=== PATIENT | male | born 1965 | race Hispanic/Latino ===

== ENCOUNTER 2022-11-04 09:10 | Emergency (ER) | payer OTHER, SELFPAY ==
--- NOTE | 2022-11-04 09:30 | ED.URI ---
HPI - URI/Sore Throat General Chief Complaint: Upper Respiratory Infection Stated Complaint: Cold Symptoms Time Seen by Provider: 11/04/22 09:50 Source: patient and RN notes reviewed Mode of arrival: ambulatory Limitations: no limitations History of Present Illness HPI Narrative: 57-year-old male with history of diabetes presents with concern for 4 day history of cough, runny nose, stuffy nose. Reports he thought he allergies. Reports his had similar symptoms started yesterday. He reports he has been around people at work with similar symptoms. He denies fever. Reports body aches. Denies taking any xroa-boa-dyjczmm medication for his symptoms. He denies shortness of breath. MD elicited complaint: cough Related Data Home Medications Medication Instructions Recorded Confirmed dulaglutide 3 mg/0.5 mL 3 mg subcut WEEKLY 11/04/22 11/04/22 subcutaneous pen injector (Trulicity) insulin glargine 100 unit/mL 30 unit subcut HS 11/04/22 11/04/22 subcutaneous solution (Lantus U-100 Insulin) lisinopril 30 mg tablet 30 mg PO DAILY 11/04/22 11/04/22 metformin 1,000 mg tablet 1,000 mg PO BID 11/04/22 11/04/22 Allergies Allergy/AdvReac Type Severity Reaction Status Date / Time No Known Allergies Allergy Unverified 11/04/22 09:40 Review of Systems Review of Systems: CONSTITUTIONAL: Reports malaise. Denies chills, sweats, or fever. EYES: Denies visual changes, redness, or discharge. ENT: Reports rhinorrhea, congestion. Denies sinus pain, otalgia and sore throat. CARDIOVASCULAR: Denies chest pain, palpitations, or edema. RESPIRATORY: Reports cough. Denies dyspnea. GASTROINTESTINAL: Denies abdominal pain, nausea, vomiting, diarrhea SKIN: Denies rash or itching. MUSCULOSKELETAL: Reports myalgia. NEUROLOGIC: Denies headache. All systems reviewed & are unremarkable except as noted in HPI and below PMFSH Comments At time of signature, agree with nursing past medical, surgical, social and family history. There is no relevant family history pertinent to the presenting complaint Exam Narrative: GENERAL: Well-appearing, well-nourished, and in no acute distress. HEAD: Normocephalic EYES: PERRLA, conjunctivae clear ENT: Nares clear, turbinates edematous and erythematous, clear discharge. Mucous membranes moist. TM pearly sheehan with dull light reflex bilaterally; no tragal tenderness. Oropharynx not erythematous without lesions. Tonsils not enlarged and without exudate, no drooling, no hoarseness, no trismus, uvula midline. NECK: Supple. No lymphadenopathy CHEST: Clear to auscultation, breath sounds equal. No wheezing, rhonchi, rales, or stridor. No respiratory distress, speaks in full sentences. HEART: Regular rate and rhythm. No murmur heard. SKIN: Warm, dry, no rash. NEURO: Alert and oriented x3. PSYCH: Normal mood and affect Course Course Emergency Course: Patient is aware of diagnosis, understands and agrees to treatment plan. Anticipatory guidance given. Patient agrees to follow-up as directed and is aware of reasons to seek care at the emergency department. Portions of this record may have been created with voice recognition software Level of Care: Express Care Visit Vital Signs Vital signs: Reviewed. MDM - URI/Sore Throat MDM Narrative Medical decision making narrative: Differential diagnosis considered: Wagner virus, strep pharyngitis, allergic rhinitis, upper respiratory tract infection, sinusitis, rhinosinusitis, nasopharyngitis. viral pharyngitis, otitis media, otitis externa, pneumonia, bronchitis, viral cough syndrome, viral syndrome, and influenza. Exam findings show no acute concerns or changes; patient is non-toxic appearing and is in no distress. Patient is appropriate for outpatient treatment and follow-up. Lab Data Attestation: I reviewed the patient's lab results. Critical Care Time Critical Care Time Critical Care Time: No Discharge Plan Discharge Clinical Impression: FELY Marrero
[2022-11-04 09:35] VITALS: BP 151/89; PULSE 95; RESP 16; TEMP 37.3; O2SAT 100
== END 2022-11-04 10:06 | disposition home or self-care (01) ==
PROVIDERS: Emergency Provider Nurse Practitioner; PCP Internal Medicine
DX: U07.1 COVID-19 (principal); I10 Essential (primary) hypertension; E11.9 Type 2 diabetes mellitus without complications
CPT/HCPCS: 87081; 87426; 87880; 99203; C9803; G0463

== ENCOUNTER 2023-10-22 16:29 | Emergency (ER) | payer OTHER, SELFPAY ==
--- NOTE | ~2023-10-22 | XR_ITS ---
EXAMINATION: XR chest 2V Exam Date/Time: 10/22/2023 17:15 LABORATORY EQUIPMENT CLEANER HISTORY: SOB/CHEST PAIN X 2 DAYS. Comparison: None. RESULT: Lines, tubes, and devices: None. Lungs and pleura: Clear. Cardiomediastinal silhouette: Normal. Other: No acute osseous or upper abdominal finding. IMPRESSION: No acute cardiopulmonary process. Reviewed, dictated and finalized at location K. RATORY EQUIPMENT CLEANER
[2023-10-22 16:34] VITALS: BP 100/70; PULSE 97; RESP 20; TEMP 37; O2SAT 100
--- NOTE | 2023-10-22 16:47 | ED.URI ---
HPI - URI/Sore Throat General Chief Complaint: Upper Respiratory Infection Stated Complaint: chest congestion/cough/abdo upset Time Seen by Provider: 10/22/23 16:47 Source: patient, RN notes reviewed and old records reviewed Mode of arrival: ambulatory Limitations: no limitations History of Present Illness HPI Narrative: 58 year old male presents to [facility] care accompanied with spouse with complaints of cough, upper epigastric discomfort radiating to his back,GI upset some dyspnea and fatigue for the past 2 days. Patient reports that his appetite has been decreased is diabetic and has continuous glucose monitor reports sugars ranging 160-180,is on daily insulin and oral medications.s along with weekly Trulicity. Patient reports no known fevers chills or sweats reports previous DE years ago and family history of cardiac disease. 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 MD elicited complaint: cough and other (epigastric discomfort radiating to back,GI upset, dyspnea) Pertinent past history: other (diabetes, hypertension, previous DE) Onset (ago): day(s) (2) Consistency: intermittent Pain scale (0-10): 2 Able to tolerate fluids by mouth: Yes Treatments prior to arrival: other (aleve) Related Data Home Medications Medication Instructions Recorded Confirmed dulaglutide 3 mg/0.5 mL 3 mg subcut WEEKLY 11/04/22 10/22/23 subcutaneous pen injector (Trulicity) insulin glargine 100 unit/mL 40 unit subcut HS 11/04/22 10/22/23 subcutaneous solution (Lantus U-100 Insulin) lisinopril 30 mg tablet 30 mg PO DAILY 11/04/22 10/22/23 metformin 1,000 mg tablet 1,000 mg PO BID 11/04/22 10/22/23 Tradjenta See Rx Instructions .Route .COMPLEX 10/22/23 10/22/23 aspirin 81 mg chewable tablet 81 mg PO DAILY 10/22/23 10/22/23 latanoprost 0.005 % eye drops 1 drp EACH EYE HS 10/22/23 10/22/23 Allergies Allergy/AdvReac Type Severity Reaction Status Date / Time No Known Allergies Allergy Unverified 10/22/23 17:11 Review of Systems Review of Systems: CONSTITUTIONAL: Denies malaise, chills, sweats, or fever. EYES: Denies visual changes, redness, or discharge. ENT: Reports no rhinorrhea, congestion, sinus pain, otalgia and sore throat. CARDIOVASCULAR: Denies chest pain, palpitations, or edema. RESPIRATORY: Reports cough.? Denies acute dyspnea.reports a little shortness of breath GASTROINTESTINAL: Reports upper epigastric pain radiating to back, states upset stomach, no vomiting,no diarrhea SKIN: Denies rash or itching. MUSCULOSKELETAL: Denies myalgia. NEUROLOGIC: Denies headache. All systems reviewed & are unremarkable except as noted in HPI and below PMFSH Past Medical History Medical History (Updated 10/24/23 @ 11:07 by Mini Gonzalez NP) Diabetes Hyperlipidemia Hypertension Past history of myocardial infarction many years ago when lived in [place] Surgical History Surgical History (Updated 10/24/23 @ 11:04 by Mini Gonzalez NP) S/P foot surgery, left for infection Family History Family History (Updated 10/24/23 @ 11:04 by Mini Gonzalez NP) Other Heart disease Social History Social History (Updated 10/24/23 @ 11:06 by Mini Gonzalez NP) Smoking status: Never smoker Alcohol intake: current Alcohol use details: rare Substance use type: does not use Living arrangements: with family Gender identity (if verbalized by the patient): Male Comments At time of signature, agree with nursing past medical, surgical, social and family history. There is no relevant family history pertinent to the presenting complaint Exam Narrative: GENERAL: Well-appearing, well-nourished, and in no acute distress. HEAD: Normocephalic EYES: PERRLA, conjunctivae clear ENT: Nares clear, turbinates edematous and erythematous, clear discharge. Mucous membranes moist. TM pearly sheehan with dull light reflex bilaterally; no tragal tenderness. Oroph
[2023-10-22 17:07] LABS: Glucose Point of Care 161 mg/dl (65-105)
--- NOTE | 2023-10-22 17:15 | ECG_ITS ---
Measurements Intervals [place] Rate: 84 P: 43 IN: 217 QRS: -42 QRSD: 87 T: 28 QT: 341 QTc: 404 Interpretive Statements SINUS RHYTHM WITH PROLONGED IN INTERVAL BASELINE ARTIFACT PATTERN CONSISTENT WITH PULMONARY DISEASE CANNOT RULE OUT iNFERIOR MYOCARDIAL INFARCTION, PROBABLY OLD BORDERLINE ECG NO PREVIOUS ECG AVAILABLE FOR COMPARISON Electronically Signed On 10-23-2023 18:09:04 LABORER DEMOLITION by Swapnil Beckford M.D.
== END 2023-10-22 18:25 | disposition home or self-care (01) ==
PROVIDERS: Emergency Provider Registered Nurse; PCP Internal Medicine
DX: K21.9 Gastro-esophageal reflux disease without esophagitis (principal); Z20.822 Contact with and (suspected) exposure to COVID-19; E11.9 Type 2 diabetes mellitus without complications; Z79.4 Long term (current) use of insulin; Z79.84 Long term (current) use of oral hypoglycemic drugs; E78.5 Hyperlipidemia, unspecified; I10 Essential (primary) hypertension; I25.2 Old myocardial infarction
CPT/HCPCS: 71046; 82948; 87426; 87804; 93005; 99213; G0463

== ENCOUNTER 2025-03-20 14:21 | Emergency (ER) | payer OTHER, SELFPAY ==
[2025-03-20 14:28] VITALS: BP 119/79; PULSE 80; RESP 18; TEMP 36.6; O2SAT 100
--- NOTE | 2025-03-20 14:31 | ED_ITS ---
HPI - Nausea/Vomiting/Diarrhea General Chief complaint: Nausea/Vomiting/Diarrhea Stated complaint: Dizziness/Vomiting/Body Aches/Diarrhea Time Seen by Provider: 03/20/25 14:32 Source: patient and RN notes reviewed Mode of arrival: ambulatory Limitations: no limitations History of Present Illness HPI Narrative: 60 y/o male with hx DM and HTN presented for c/o n/v/d, chills. Onset 3 days with diarrhea which has since resolved. Yesterday had vomiting and chills. Today had vomiting and felt dizzy during the episode. Also endorses decreased appetite x4 days, frequent hiccups, and nausea when he tries to eat. States his Dexcom is not working, pt takes Lantus and insulin. Took a Tums yesterday. Endorses history of acid reflux, not on medication. BS on arrival 326. Related Data Home Medications ?Medication ?Instructions ?Recorded ?Confirmed ?Last Taken ?Type insulin glargine 100 unit/mL 40 unit subcut HS 11/04/22 10/22/23 Unknown History subcutaneous solution (Lantus U-100 Insulin) lisinopril 30 mg tablet 30 mg PO DAILY 11/04/22 10/22/23 Unknown History aspirin 81 mg chewable tablet 81 mg PO DAILY 10/22/23 10/22/23 Unknown History alcohol swabs pad topical 03/20/25 Unknown History atorvastatin 20 mg tablet mg 03/20/25 Unknown History blood-glucose sensor (Dexcom G7 03/20/25 03/20/25 Unknown History Sensor device) empagliflozin 25 mg tablet mg 03/20/25 Unknown History (Jardiance) insulin lispro 100 unit/mL subcut 03/20/25 Unknown History subcutaneous pen Allergies Allergy/AdvReac Type Severity Reaction Status Date / Time No Known Allergies Allergy Verified 03/20/25 14:43 Review of Systems Review of Systems: CONSTITUTIONAL: Denies body aches, fever, Reports chills ENT: Denies rhinorrhea, congestion CARDIOVASCULAR: Denies chest pain, palpitations, or edema. RESPIRATORY: Denies cough or dyspnea. GASTROINTESTINAL: Endorses abdominal pain, nausea, vomiting, diarrhea. Denies hematochezia, melena, hematemesis GENITOURINARY: Denies dysuria, hematuria, or CVA tenderness. SKIN: Denies rash MUSCULOSKELETAL: Denies back pain, joint pain, or myalgia. NEUROLOGIC: Denies headache, numbness, tingling, or weakness. All systems reviewed & are unremarkable except as noted in HPI and below PMFSH Past Medical History Medical History Hyperlipidemia Past history of myocardial infarction many years ago when lived in [place] Hypertension Diabetes Surgical History Surgical History S/P foot surgery, left for infection Family History Family History Other Heart disease Social History Social History Smoking status: Never smoker Alcohol intake: current Alcohol use details: rare Substance use type: does not use Living arrangements: with family Gender identity (if verbalized by the patient): Male Comments At time of signature, I have reviewed and agree with nursing past medical, surgical, social and family history unless otherwise noted. Please see nursing chart for further information. There is no relevant family history pertinent to the presenting complaint Exam Narrative: GENERAL: Well-appearing, and in no acute distress. EYES: EOMI. Conjunctivae normal. ENT: Mucous membranes pink and moist. CHEST: No respiratory distress. Clear to auscultation. HEART: Regular rate and rhythm. No murmur appreciated. Normal peripheral pulses. ABDOMEN: abd soft, normal active bowel sounds. Tender abdomen to RLQ, RUQ, periumbilical and epigastric areas, distended, guarding, no rebound tenderness, asymmetry EXTREMITIES: Normal range of motion. No edema. SKIN: Warm, dry, no rash. Capillary refill normal. Normal skin turgor. NEURO: No focal deficits. Alert and oriented x3. PSYCH: Normal affect. Course Course Emergency Course: Patient is aware of diagnosis, understands and agrees to treatment plan. Anticipatory guidance given. Patient agrees to follow-up as directed and is aware of reasons to seek care at the emergency department. Portions of this record may have been created with voice recognition software Level of Care: Express Care Visit Vital Signs Vital signs: Vital Signs Temperature 98 F 03/20/25 14:28 Pulse Rate 80 03/20/25 14:28 Respiratory Rate 18 03/20/25 14:28 Blood Pressure 119/79 03/20/25 14:28 Pulse Oximetry 100 03/20/25 14:28 Oxygen Delivery Room Air 03/20/25 14:28 Temperature 98 F 03/20/25 14:28 Pulse Rate 80 03/20/25 14:28 Respiratory Rate 18 03/20/25 14:28 Blood Pressure 119/79 03/20/25 14:28 Pulse Oximetry 100 03/20/25 14:28 Oxygen Delivery Room Air 03/20/25 14:28 Transfer Transfered to: [facility] Transportation: Other ( private vehicle) Transfer rationale: Pt is agreeable to transfer. Requests transfer to [facility] via private vehicle. Risks of transportation reviewed with pt including injury, worsening of condition and . v/u. Report called to hospital, spoke with Shirlene MIKE, [place] CALVERT, accepting physician. Pt is in stable condition at time of transfer. Advised to remain NPO and go directly to the hospital. MDM - Nausea/Vomiting/Diarrhea MDM Narrative Medical decision making narrative: Discussed physical exam findings, negative flu and COVID BS 326, VSS. Advised ER transfer for further evaluation n/v/d, hyperglycemia. Pt requests [facility]. Differential Diagnosis Differential diagnosis: Likely traveler's diarrhea, food poisoning, gastroenteritis, drug-induced nausea and vomiting, dehydration and other Lab Data Labs: Lab Results 03/20/25 03/20/25 Range/Units 14:39 14:56 POC Capillary Glucose 329 H (65-105) mg/dl POC Influenza A Ag Negative (Negative) POC Influenza B Ag Negative (Negative) POC SARS CoV-2 Ag Negative (Negative) Discharge Plan Discharge Clinical Impression: Vomiting, Hyperglycemia Patient Disposition: Acute Care Hospital Condition: Stable Patient Language: Indonesian Prescriptions: No Action lisinopril 30 mg tablet 30 mg PO DAILY insulin glargine [Lantus U-100 Insulin] 100 unit/mL solution 40 unit SUBCUT HS atorvastatin 20 mg tablet alcohol swabs Pads, Medicated TOPICAL insulin lispro 100 unit/mL insulin pen SUBCUT (DME) Dexcom G7 Sensor Device MISCELLANEOUS Jardiance 25 mg tablet aspirin 81 mg tablet,chewable 81 mg PO DAILY famotidine [Pepcid] 40 mg tablet 40 mg PO DAILY Qty: 30 0RF Follow-up/Referrals: Avril Mckay RN [Primary Care Provider] - Time of Disposition: 15:12
--- OUTSIDE RECORDS SUMMARY | 2025-03-20 14:31 | XMS_ITS | Clinical Summary ---
Author Organization [facility] Address [address] [place] [address] Phone Care Team Providers Care Plastic Process Technician Name Role Phone Corinne Bajwa Primary Care Provider [phone] Allergies No known active allergies Medications lisinopril (PRINIVIL, ZESTRIL) 20 MG Tablet Take 20 mg by mouth daily. Active linagliptin (TRADJENTA) 5 MG Tablet Take 5 mg by mouth nightly. Active metFORMIN (GLUCOPHAGE) 1000 MG Tablet Take 1,000 mg by mouth 2 times daily (with meals). Active glipiZIDE (GLUCOTROL XL) 5 MG TABLET SR 24 HR Take 5 mg by mouth nightly. Active atorvastatin (LIPITOR) 20 MG Tablet Take 20 mg by mouth nightly. Active aspirin EC 81 MG Tablet Delayed Response Take 81 mg by mouth daily. Active fluticasone (FLONASE) 50 MCG/ACT Suspension 1-2 Sprays by Nasal route daily. Use in each nostril as directed. 1 Bottle 11/27/2018 Active Active Problems Problem Noted Date Diagnosed Date Chest pain 09/05/2017 Hypomagnesemia 09/05/2017 Type 2 diabetes mellitus wit hout complication, without long-term current use of insulin 09/05/2017 Hypertension 09/05/2017 Family History Medical History Relation Name Comments Stroke Brother Stroke Father Stroke Mother Stroke Sister Relation Name Status Comments Brother (Age 46) Father (Age 88) Mother (Age 76) Sister (Age 14) Social History Tobacco Use Types Packs/Day Years Used Date Smoking Tobacco: Never Smokeless Tobacco: Never Alcohol Use Standard Drinks/Week Comments No 0 (1 standard drink = 0.6 oz pur e alcohol) Sex and Gender Information Value Date Recorded Sex Assigned at Not on file Legal Sex Male 11:35 PM CDT Gender Identity Not on file Sexual Orientation Not on file Last Filed Vital Signs Vital Sign Reading Time Taken Comments Blood Pressure 148/73 11/27/2018 11:30 AM CDT Pulse 71 11/27/2018 11:30 AM CDT Temperature 36.2 C (97.2 F) 11/27/2018 8:27 AM CDT Respiratory Rate 12 11/27/2018 9:45 AM CDT Oxygen Saturation 100% 11/27/2018 11:30 AM CDT Inhaled Oxygen Concentration - - Weight 87.5 kg (193 lb) 11/27/2018 8:22 AM CDT Height 167.6 cm (5' 6) 11/27/2018 8:22 AM CDT Body Mass Index 31.15 11/27/2018 8:22 AM CDT Plan of Treatment Health Maintenance Due Date Last Done Comments Diabetes: Foot Exam 1965 Hepatitis C Virus (HCV) Screening 1965 Cologuard 2008 Colonoscopy 2008 Colorectal Cancer Screening 2008 Immunochemical Fecal Occult Blood 2008 Zoster Immunization (1 of 2) 2013 Pneumococcal Immunization (50+ years) (2 of 2 - PCV) 08/05/2017 08/05/2016, 06/13/2006 Diabetes: Hemoglobin A1c 03/05/2018 09/05/2017 Diabetes: Nephropathy Screening 11/28/2019 11/27/2018, 09/06/2017, 09/05/2017 Respiratory Syncytial Virus (RSV) Immunization (Adult) (1 - Risk 60-74 years 1-dose series) 2023 Diabetes: Eye Exam 12/04/2023 12/03/2022 SARS-COV-2 Immunization ( - season) 2024 12/19/2020, 11/21/2020 Influenza Immunization (#1) 2025 1008/2017, 05/28/2018, 05/05/2017, Additional history exists DTaP/Tdap/Td Immunization Discontinued 07/27/2010, 12/2008 TdaP Immunization Completed 07/27/2010, 09/02/2008 Pneumococcal Immunization Combined Discontinued 08/05/2016, 06/13/2006 Hepatitis B Immunization Aged Out No longer eligible based on patient's age to complete this topic Human Papillomavirus (HPV) Immunization Aged Out No longer eligible based on patient's age to complete this topic Meningococcal Immunization (ACWY) Aged Out No longer eligible based on patient's age to complete this topic Rotavirus Immunization Aged Out No lo nger eligible based on patient's age to complete this topic Procedures Procedure Name Priority Date/Time Associated Diagnosis Comments DILATED EYE EXAM 12/03/2022 1 2:00 AM CDT CMP (COMPREHENSIVE METABOLIC PANEL) STAT 11/27/2018 8:40 AM CDT HEMOGLOBIN A1C W/ ESTIMATED GLUCOSE Routine 09/05/2017 4:19 PM MANAGER ER from Last 3 Months or Most Recently Relevant to Health Maintenance Results * DILATED EYE EXAM (12/03/2022 12:00 AM CDT) 12/03/2022 us Provider Scan PROCEDURE/MINOR SURGICAL ORDERAB LES Final Result SCAN * (ABNORMAL) CMP (11/27/2018 8:40 AM CDT) SODIUM 138 136 - 144 mmol/L 11/27/2018 9:17 AM CDT [facility] POTASSIUM 3.6 3.5 - 5.1 mmol/L 11/27/2018 9:17 AM CDT [facility] CHLORIDE 103 100 - 110 mmol/L 11/27/2018 9:17 AM CDT [facility] CO2, VENOUS 23 22 - 32 mmol/L 11/27/2018 9:17 AM CDT [facility] ANION GAP 15.6 8.0 - 20.0 mmol/L 11/27/2018 9:17 AM CDT [facility] GLUCOSE 264(H) 70 - 99 mg/dL 11/27/2018 9:17 AM CDT [facility] BUN 13 6 - 20 mg/dL 11/27/2018 9:17 AM [facility] CREATININE, BLOOD 0.37(L) 0.80 - 1.30 mg/dL 11/27/2018 9:17 AM [facility] BUN/CREATININE RATIO 35(H) 12 - 20 ratio 11/27/2018 9:17 AM [facility] TOTAL PROTEIN 7.3 6.0 - 8.3 g/dL 11/27/2018 9:17 AM [facility] ALBUMIN 3.7 3.5 - 5.2 g/dL 11/27/2018 9:17 AM [facility] Comment: The colormetric methods used for the determination of Albumin may lead to falsely elevated test results in patients suffering from renal failure or insufficiency due to interference with other proteins. A/G RATIO 1.0 1.0 - 2.0 11/27/2018 9:17 AM [facility] CALCIUM 9.2 8.9 - 10.3 mg/dL 11/27/2018 9:17 AM [facility] T BILI 0.6 <=1.2 mg/dL 11/27/2018 9:17 AM [facility] SGOT (AST) 9 <=40 U/L 11/27/2018 9:17 AM [facility] SGPT (ALT) 15 <=41 U/L 11/27/2018 9:17 AM [facility] ALKALINE PHOSPHATASE 70 40 - 130 U/L 11/27/2018 9:17 AM [facility] GFR, EST. NONAFRICAN >60 >=60 11/27/2018 9:17 AM [facility] GFR, EST. >60 >=60 019 9:17 AM [facility] Comment: Creatinine Clearance is the preferred criteria for selecting drug dose adjustments in renally impaired patients. The GFR is provided as additional pertinent clinical information. GFR is reported in mL/min/1.73 sq m. Blood specimen (specimen) Venous Catheter (IV) / Unknown 11/27/2018 8:40 AM CDT 11/27/2018 8:50 AM CDT us Darnell Cespedes MD CHEMISTRY ORDERABLES Final Result Performing Organization Address City/[facility]/ZIP Co de Phone Number [facility] [address] [place] [address] * (ABNORMAL) Hemoglobin A1C (if indicated) (09/05/2017 4:19 PM MANAGER ER) HGB-A1C 8.3(H) 4.4 - 6.4 % 09/05/2017 4:38 PM MANAGER ER [facility] Est Average Glucose 191.5 mg/dL 09/05/2017 4:38 PM MANAGER ER [facility] Blood specimen (specimen) Butterfly Puncture / Unknown 09/05/2017 4:19 PM MANAGER ER 09/05/2017 4:24 PM MANAGER ER Narrative [facility] - 09/05/2017 4:38 PM MANAGER ER HEMOGLOBIN A1C: DIABETIC PATIENTS: WELL-CONTROLLED: 6.2 - 7.0 INTERMEDIATE WELL-CONTROLLED: 7.0 - 9.0 POORLY-CONTROLLED: >9.0 us Maryjane Mattson APRN, CNP CHEMISTRY ORDERABLE S Final Result Performing Organization Address [facility] Co de Phone Number [facility] [address] [place] [address] from Last 3 Months or Most Recently Relevant to Health Maintenance Insurance MEDICAID [employer] Advance Directives * Full Code (Latest Code Status on File) Date Activated Date Inactivated Comments 09/05/2017 1:09 PM 09/06/2017 3:41 PM CPR-Full Treat ment: FULL ARREST: Attempt Resuscitation/CPR wit intubation and mechanical ventilation. PRE-ARREST: Use entire range of life support measures to stabilize the patient. Care Teams Plastic Process Technician Relationship Specialty Start Date End Date Corinne Bajwa PA [address] [address] PCP - General Adult Medicine 09/05/17
--- OUTSIDE RECORDS SUMMARY | 2025-03-20 14:31 | XMS_ITS | Referral Summary ---
Author Organization [facility] Address [address] [place] [id number] Care Team Providers Care Glass Installer Technician Name Role Phone Ravi Rosas MD Primary Care Provider [phone] Encounters Date Type Department Care Team Description 03/05/2025 Telephone [facility] Diabetes Endocrine Care at [address] [id number] Daxa Zimmerman, [employer] 02/07/2025 Plan of Care Documentation [facility] - [place] Darrell Maza [id number] 02/07/2025 5:30 PM CDT Therapy [facility] - [place] Darrell Maza [facility] Maria C Hernandez, PT Dizziness and giddiness (Primary Dx); Vertigo 01/28/2025 Telephone [facility] Diabetes Endocrine Care at [address] [phone] Daxa Zimmerman, [employer] 01/09/2025 Results Follow-Up [facility] Diabetes Endocrine Care at [address] [phone] Daxa Zimmerman, [employer] Lipid panel, Albumin Creatinine Ratio, Urine, Comprehensive metabolic panel, eGFR 01/08/2025 3:30 PM CDT Lab [facility] Outpatient Lab - Outpatient Center at [address] [address] Type 2 diabetes mellitus with hyperglycemia, with long-term current use of insulin ([facility]) 01/08/2025 3:00 PM CDT Office Visit [facility] Diabetes Endocrine Care at [address] [place] [id number] Daxa Zimmerman, [employer] Type 2 diabetes mellitus with hyperglycemia, with long-term current use of insulin ([facility]) (Primary Dx); Mixed 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 (HCC); Primary hypertension; Dexcom 6 continuous glucose monitoring device from Last 3 Months Allergies No known active allergies Medications latanoprost (XALATAN) 0.005 % ophthalmic solution INSTILL 1 DROP IN BOTH EYES EVERY NIGHT AT BEDTIME 3 Active famotidine (PEPCID) 40 mg tablet Take 1 tablet (40 mg total) by mouth daily Active meclizine (ANTIVERT) 25 mg tablet Take 1 tablet (25 mg total) by mouth 3 (three) times a day as needed for dizziness 30 tablet 4 Active alcohol swabs pads, medicated USE TO CHECK BLOOD SUGAR THREE TIMES DAILY 4 Active empagliflozin (JARDIANCE) 25 mg tabletIndicati ons:type 2 diabetes mellitus Take 1 tablet (25 mg total) by mouth daily 90 tablet 4 4 Active lisinopriL (PRINIVIL,ZEST RIL) 30 mg tablet Take 1 tablet (30 mg total) by mouth daily I10 90 tablet 4 4 Active metFORMIN (GLUCOPHAGE) 1,000 mg tabletIndicati ons:Type 2 diabetes mellitus with hyperglycemia, with long-term current use of insulin ([facility]) Take 1 tablet (1,000 mg total) by mouth 2 (two) times a day with meals 180 tablet 4 4 Active atorvastatin (LIPITOR) 20 mg tablet Take 1 tablet (20 mg total) by mouth nightly 90 tablet 4 4 Active insulin glargine (LANTUS) 100 unit/mL vial for injectionIndic ations:Type 2 diabetes mellitus with hyperglycemia, with long-term current use of insulin ([facility]) Inject 48 Units under the skin nightly E11,65 45 mL 4 5 Active dulaglutide (Trulicity) 3 mg/0.5 mL pen injectorIndica tions:type 2 diabetes mellitus Inject 0.5 mL (3 mg total) under the skin every 7 days E11.65 6 mL 4 5 Active pen needle, diabetic 32 gauge x 5/32 needle Use to inject up to 4 times daily 100 each 11 5 Active insulin lispro (HumaLOG) 100 unit/mL pen for injectionIndic ations:type 2 diabetes mellitus Inject 14 Units under the skin 3 (three) times a day before meals e11.65 45 mL 4 5 Active blood-glucose sensor device Use to continuously monitor glucose, change every 10 days. 9 each 3 5 Active insulin syringe-needle U-100 1/2 mL 29 syringe USE DIRECTED WITH LANTUS 100 each 3 5 Active aspirin 81 mg chewable tablet Take 1 tablet (81 mg total) by mouth daily 100 tablet 3 5 Active aspirin 81 mg chewable tablet CHEW AND SWALLOW 1 TABLET BY MOUTH DAILY 0 025 Discontin ued(Reord er) TRUEplus Insulin 0.5 mL 29 gauge x 1/2 syringe USE DIRECTED WITH LANTUS 4 025 Discontin ued(Alter rosales therapy) Active Problems Problem Noted Date Diagnosed Date Cervical radiculopathy 02/18/2024 Transient ischemic attack (TIA) 02/17/2024 Dizziness 02/16/2024 Mixed diabetic hyperlipidemi a associated with type 2 diabetes mellitus 03/11/2023 Assessment & Plan (07/05/2024 3:45 PM QUALITY CONTROL ANALYST): This is a chronic condition which is at goal . Goal is LDL less than 70 Continue atorvastatin. Encouraged to eat healthy, include fresh fruits and vegetables daily and avoid eating fried foods more than once per week. Assessment & Plan (03/27/2024 4:52 PM CDT): This is a chronic condition which is at goal . Goal is LDL less than 70 Continue atorvastatin Encouraged to eat healthy, include fresh fruits and vegetables daily and avoid eating fried foods more than once per week. Encouraged to take medications as prescribed. Assessment & Plan (07/26/2023 3:18 PM QUALITY CONTROL ANALYST): This is a chronic condition which is at goal of LDL less than 70 Continue atorvastatin Encouraged to eat healthy, include fresh fruits and vegetables daily and avoid eating fried foods more than once per week. Encouraged to take medications as prescribed. Assessment & Plan (03/11/2023 10:51 AM CDT): This is a chronic condition which is at goal of LDL less than 70 Continue atorvastatin Encouraged to eat healthy, include fresh fruits and vegetables daily and avoid eating fried foods more than once per week. Encouraged to take medications as prescribed. DoseMe 6 continuous glucose monitoring device Assessment & Plan (01/08/2025 3:07 PM CDT): Continuous glucose monitor (cgm) applied from 12/26/2024 to 01/08/2025 This device was placed for monitor and treatment of blood sugar. Interpretation of data- average blood sugar 261. 18% time in range. 82% hyperglycemia. 1% hypoglycemia Assessment & Plan (10/11/2024 3:01 PM QUALITY CONTROL ANALYST): Continuous glucose monitor (cgm) applied from 09/28/2024 to 10/11/2024 This device was placed for monitor and treatment of blood sugar. Interpretation of data- average blood sugar to 75. 10% time in range. 90% hyperglycemia. 0 hypoglycemia Assessment & Plan (07/05/2024 3:25 PM QUALITY CONTROL ANALYST): Continuous glucose monitor (cgm) applied from 06/22 to 07/05/2024 This device was placed for monitor and treatment of blood sugar. Interpretation of data- average blood sugar 191. 50% time in range. 50% hyperglycemia. 0 hypoglycemia Assessment & Plan (03/11/2023 10:53 AM CDT): Continuous glucose monitor (cgm) applied from 02/21 to 03/06/2023 This device was placed for monitor and treatment of blood sugar. Interpretation of data- average blood sugar 223. 26% time in range. 74% hyperglycemia. Increase basal insulin. Type 2 diabetes mellitus with hyperglycemia 07/29 Assessment & Plan (07/05/2024 3:44 PM QUALITY CONTROL ANALYST): This is a chronic condition which is uncontrolled, improving but not at goal. No hypoglycemia . Goal is less than 7%. Personally reviewed most recent A1c - Lab Results Component Value Date HGBA1C 8.3 07/05/2024 Personally reviewed POC blood sugar- elevated, not at goal of 80-180 Lab Results Component Value Date POCGLU 218 07/05/2024 Medication- continue Lantus 44 units daily, continue Humalog 14 units prior to meals- 3 times/day, continue metformin 1000mg twice a day, continue Trulicity 1.5mg weekly. Add Jardiance 25 mg daily Monitor blood sugar continuously with cgm. Encouraged annual eye exam. Monofilament foot exam completed. Protective senses -not intact eGFR- >90 Kidney function-normal Urine microalbumin/creatinine ratio - elevated. Goal is <30. Continue lisinopril. Assessment & Plan (03/27/2024 4:51 PM CDT): This is a chronic condition which is worsening, elevated, not at goal . Goal is less than 7%. Since stopping Trulicity Personally reviewed most recent A1c - Lab Results Component Value Date HGBA1C 9.6 (H) 02/17/2024 Personally reviewed POC blood sugar- not at goal of 80-180 Lab Results Component Value Date POCGLU 228 03/27/2024 Medication- increase Lantus 44 units daily, continue Humalog 142 units prior to meals- 3 times/day, and metformin 1000mg twice a day, stopped trulicity 3mg weekly after being hospitalized. Restart Trulicity 0.75mg weekly. Monitor blood sugar continuously with cgm. Encouraged annual eye exam. Monofilament foot exam completed. Loss of protective senses Personally reviewed CMP eGFR- greater than 90 Kidney function-normal Urine microalbumin/creatinine ratio - not at goal. Goal is <30. Continue Lisinopril Assessment & Plan (07/26/2023 3:18 PM QUALITY CONTROL ANALYST): This is a chronic condition which is inadequately controlled improving not at goal of less than 7%. Personally reviewed most recent A1c - Lab Results Component Value Date HGBA1C 8.6 07/26/2023 Personally reviewed POC blood sugar- not at goal 80-180 Lab Results Component Value Date POCGLU 200 07/26/2023 Medication- increase Lantus 40 units daily, continue Humalog 12 units prior to meals- 3 times/day, and metformin 1000mg twice a day, Continue trulicity 3mg weekly Monitor blood sugar continuously with sensor. Encouraged annual eye exam. Monofilament foot exam completed. protective senses intact Personally reviewed CMP eGFR- 112 Kidney function- normal Urine microalbumin/creatinine ratio - not at goal <30 treated with lisinopril B/P today- at goal of <140/90. continue lisinopril Personally reviewed lipid panel. at Goal of less than 70. Continue atorvastatin Assessment & Plan (03/11/2023 10:50 AM CDT): This is a chronic condition which is worsening not at goal of less than 7%. Personally reviewed most recent A1c - Lab Results Component Value Date HGBA1C 9.4 03/11/2023 Personally reviewed POC blood sugar- not at goal 80-180 Lab Results Component Value Date POCGLU 233 03/11/2023 Medication- Continue increase Lantus 40 units daily, continue Humalog 12 units prior to meals- 3 times/day, and metformin 1000mg twice a day, Continue trulicity 3mg weekly Monitor blood sugar continuously with dexcom 6 sensor. Encouraged annual eye exam. Monofilament foot exam completed. loss of protective senses. Treated with Gabapentin/Lyrica Personally reviewed CMP eGFR- 112 Kidney function- normal Urine microalbumin/creatinine ratio - pending. goal <30 treated with lisinopril B/P today-at goal of <140/90. continue lisinopril Personally reviewed lipid panel. at Goal of less than 70. Continue atorvastatin Assessment & Plan (12/10/2022 4:06 PM CDT): This is a chronic condition which is improving but not at goal of less than 7%. Personally reviewed most recent A1c - Lab Results Component Value Date HGBA1C 8.7 12/10/2022 Personally reviewed POC blood sugar- not at goal 80-180 Lab Results Component Value Date POCGLU 214 12/10/2022 Medication- Continue Lantus 36 units daily, Humalog 12 units prior to meals- 3 times/day, and metformin 1000mg twice a day, Continue trulicity 3mg weekly Monitor blood sugar continuously with Dexcom 6 sensor. Encouraged annual eye exam. last dilated eye exam was [facility] Monofilament foot exam completed. Some protective senses intact loss of protective senses at some areas of. Urine microalbumin/creatinine ratio - not at goal <30 treated with lisinopril Personally reviewed CMP GFR- 103 Kidney function- normal B/P today- at goal of <140/90. continue lisinopril Personally reviewed lipid panel. Not at Goal of less than 70. Continue atorvastatin Assessment & Plan (08/16/2022 3:16 PM QUALITY CONTROL ANALYST): This is a chronic condition which is worsening, not at goal. Personally reviewed latest A1c-10.7 %, Not at goal less than 7% Personally reviewed blood sugar -288, not at goal 80-180 Medication- Continue Lantus 36 units daily, Humalog 12 units prior to meals- 3 times/day, and metformin 1000mg twice a day, continue trulicity 3 mg weekly - denies history of pancreatitis. Encouraged to monitor blood sugar 4x times a day. Encouraged annual eye exam. last dilated eye exam was [facility] Monofilament foot exam completed, some protective senses intact but absent in other areas, Urine microalbumin/creatinine ratio - 30-300mg/dl, abnormal. Continue lisinopril 20 mg daily, at goal <30 Personally reviewed labs: GFR- 103 Kidney function- normal B/P today- at goal of <140/90.. Continue Lisinopril. Personally reviewed LDL - 91 at Goal of less than 70, continue atorvastatin. No history of macrovascular disease - [place] Primary hypertension 09/05/2017 Assessment & Plan (07/05/2024 3:45 PM QUALITY CONTROL ANALYST): This is a chronic condition which is at goal. Goal is less than 140/90 Continue lisinopril Encouraged to monitor weight and B/P at home. Assessment & Plan (03/27/2024 4:51 PM CDT): This is a chronic condition which is at goal. Goal is less than 140/90 Personally reviewed labs. Continue lisinopril Encouraged to monitor weight and B/P at home. Encouraged to void caffeine and excessive alcohol consumption as this will elevate B/P Encouraged to take medications as prescribed. Assessment & Plan (07/26/2023 3:19 PM QUALITY CONTROL ANALYST): This is a chronic condition which is at goal of less than 140/90 Personally reviewed labs. Continue lisinopril Encouraged to monitor weight and B/P at home Encouraged to take medications as prescribed. Assessment & Plan (03/11/2023 10:50 AM CDT): This is a chronic condition which is at goal of less than 140/90 Personally reviewed labs. Continue lisinopril Encouraged to monitor weight and B/P at home Encouraged to take medications as prescribed. Assessment & Plan (12/10/2022 4:06 PM CDT): This is a chronic condition which is at goal Of <140/90 Personally reviewed labs. continue lisinopril Avoid caffeine, caffeine will raise blood pressure and excessive alcohol consumption. Monitor your weight and B/P. Encouraged to take medications as prescribed. Assessment & Plan (08/16/2022 3:18 PM QUALITY CONTROL ANALYST): This is a chronic condition which is at goal Of <140/90 Personally reviewed labs. continue lisinopril Avoid caffeine, caffeine will raise blood pressure and excessive alcohol consumption. Monitor your weight and B/P. Encouraged to take medications as prescribed. Assessment & Plan (05/13/2022 4:52 PM CDT): This is a chronic condition which is at goal Goal is <140/90 Personally reviewed labs. B/P today- at goal continue lisinopril 20 mg daily. Avoid caffeine, caffeine will raise blood pressure and excessive alcohol consumption. Monitor your weight and B/P. Encouraged to take medications as prescribed. Assessment & Plan (01/15/2022 11:00 AM CDT): This is a chronic condition which is at goal Goal is <140/90 Personally reviewed labs. B/P today- 118/66, currently on lisinopril 20 mg daily. Avoid caffeine, caffeine will raise blood pressure and excessive alcohol consumption. Monitor your weight and B/P. Encouraged to take medications as prescribed. Assessment & Plan (12/02/2021 11:30 AM CDT): This is a chronic condition which is at goal Goal is <140/90 Personally reviewed labs. B/P today- 130/72, currently on lisinopril 20 mg daily. Avoid caffeine, caffeine will raise blood pressure and excessive alcohol consumption. Monitor your weight and B/P. Encouraged to take medications as prescribed. Assessment & Plan (10/20/2021 4:09 PM QUALITY CONTROL ANALYST): This is a chronic condition which is at goal Goal is <140/90 Personally reviewed labs. B/P today- 138/72, currently on lisinopril 20 mg daily. Avoid caffeine, caffeine will raise blood pressure and excessive alcohol consumption. Monitor your weight and B/P. Encouraged to take medications as prescribed. Assessment & Plan (07/20/2021 6:05 PM QUALITY CONTROL ANALYST): This is a chronic condition which is at goal Goal is <140/90 Personally reviewed labs. B/P today- 128/70, currently on lisinopril 20 mg daily. Avoid caffeine, caffeine will raise blood pressure and excessive alcohol consumption. Monitor your weight and B/P. Encouraged to take medications as prescribed. Assessment & Plan (05/27/2021 4:37 PM CDT): This is a chronic condition which is at goal Goal is <140/90 Personally reviewed labs. B/P today- 120/68, currently on lisinopril 20 mg daily. Avoid caffeine, caffeine will raise blood pressure and excessive alcohol consumption. Monitor your weight and B/P. Encouraged to take medications as prescribed. Assessment & Plan (02/27/2021 4:47 PM CDT): This is a chronic condition which is at goal Goal is <140/90 Personally reviewed labs. B/P today- 112/68, currently on lisinopril 20 mg daily. Avoid caffeine, caffeine will raise blood pressure and excessive alcohol consumption. Monitor your weight and B/P. Encouraged to take medications as prescribed. Assessment & Plan (11/19/2020 5:17 PM CDT): This is a chronic condition and is stable, controlled, at goal. Goal is <140/90 on current therapy. Personally reviewed labs. Avoid caffeine, caffeine will raise blood pressure and excessive alcohol consumption. Monitor your weight and B/P. Please take medications as prescribed. B/P today- 116/62, currently on lisinopril 20 mg daily. Assessment & Plan (09/12/2020 5:20 PM QUALITY CONTROL ANALYST): This is a chronic condition and is stable, controlled, at goal. Goal is <140/90 on current therapy. Personally reviewed labs. Avoid caffeine, caffeine will raise blood pressure and excessive alcohol consumption. Monitor your weight and B/P. Please take medications as prescribed. B/P today- 112/70, currently on lisinopril 20 mg daily. Resolved Problems Problem Noted Date Diagnosed Date Resolved Date Type 2 diabetes mellitus wit h chronic kidney disease 08/16/2022 08/16/2022 Type II or unspecified type diabetes mellitus with renal manifestations, uncontrolled(250.42) 05/27/2021 05/27/2021 Type 2 diabetes mellitus wit hout complication, with long-term current use of insulin ([facility]) 09/05/2017 08/16/2022 Assessment & Plan (05/13/2022 4:52 PM CDT): This is a chronic condition which is worsening, not at goal. Personally reviewed latest A1c- 8.6 % Not at goal less than 7% Personally reviewed blood sugar -318, not at goal 80-180 Medication- Continue Lantus 36 units daily, Humalog 12 units prior to meals- 3 times/day, and metformin 1000mg twice a day, increase trulicity 3 mg weekly - denies history of pancreatitis. TSH -1.22, normal thyroid function, cpeptide-3.4- Type 2 Diabetes. Encouraged to monitor blood sugar 4x times a day. Encouraged annual eye exam. last dilated eye exam was [facility] in [place] Monofilament foot exam completed, protective senses intact, Labs scanned into media Urine microalbumin/creatinine ratio - 30-300mg/dl, abnormal. Continue lisinopril 20 mg daily, at goal <30 Personally reviewed labs: GFR- 103 Kidney function- normal B/P today- at goal. Continue lisinopril 20 mg daily. Goal blood pressure is <140/90. Personally reviewed LDL - 91, continue atorvastatin 20 mg daily. At Goal of less than 70 No history of macrovascular disease - [place]. Assessment & Plan (01/15/2022 11:00 AM CDT): This is a chronic condition which is improving but not at goal. Personally reviewed latest A1c- 8% Not at goal less than 7% Personally reviewed blood sugar -126 at goal 80-180 Medication- Continue Lantus 36 units daily, Humalog 12 units prior to meals- 3 times/day, and metformin 1000mg twice a day, trulicity 1.5mg weekly - denies history of pancreatitis. TSH -1.22, normal thyroid function, cpeptide-3.4- Type 2 Diabetes. Encouraged to monitor blood sugar 4x times a day. Encouraged annual eye exam. last dilated eye exam was [facility] in [place] Monofilament foot exam completed, protective senses intact, Labs scanned into media Urine microalbumin/creatinine ratio - 30-300mg/dl, abnormal. Currently on lisinopril 20 mg daily, at goal <30 Personally reviewed labs: BUN-14 creatinine- 0.54 GFR- 117 Kidney function- normal B/P today- 118/66, currently on lisinopril 20 mg daily. At Goal blood pressure is <140/90 and as close to 120/80 as possible. Personally reviewed LDL - 66, currently on atorvastatin 20 mg daily. At Goal of less than 70 No history of macrovascular disease - [place] Assessment & Plan (12/02/2021 11:29 AM CDT): This is a chronic condition which is not at goal. Personally reviewed latest A1c- 10.9% Not at goal less than 7% Personally reviewed blood sugar -91 at goal 80-180 Medication- Continue Lantus 36 units daily, Humalog 12 units prior to meals- 3 times/day, and metformin 1000mg twice a day, increase trulicity 1.5mg weekly - denies history of pancreatitis. TSH -1.22, normal thyroid function, cpeptide-3.4- Type 2 Diabetes. Encouraged to monitor blood sugar 4x times a day. Encouraged annual eye exam. last dilated eye exam was [facility] in [place] Monofilament foot exam completed, protective senses intact, Labs scanned into media Urine microalbumin/creatinine ratio - 30-300mg/dl, abnormal. Currently on lisinopril 20 mg daily, at goal <30 Personally reviewed labs: BUN-14 creatinine- 0.54 GFR- 117 Kidney function- normal B/P today- 130/72, currently on lisinopril 20 mg daily. At Goal blood pressure is <140/90 and as close to 120/80 as possible. Personally reviewed LDL - 66, currently on atorvastatin 20 mg daily. At Goal of less than 70 No history of macrovascular disease - [place] Assessment & Plan (10/20/2021 5:00 PM QUALITY CONTROL ANALYST): This is a chronic condition which is not at goal. Personally reviewed A1c today- 10.9% Not at goal less than 7% Personally reviewed blood sugar -276 Not at goal 80-180 Medication- Continue Metformin 1000mg twice daily, stop Tradjenta increase Lantus 36units daily, increase Humalog 12units - 3 times/day- 15 minutes prior to meals. Start Trulicity 0.75mg weekly. - denies history of pancreatitis. Return demonstated the correct use of an insulin pen and Trulicity pen Most likely medication non compliance. TSH -1.22, normal thyroid function, cpeptide-3.4- Type 2 Diabetes. Encouraged to monitor blood sugar 4x times a day. Encouraged annual eye exam. last dilated eye exam was [facility] in [place] Monofilament foot exam completed, protective senses intact, Labs scanned into media Urine microalbumin/creatinine ratio - 30-300mg/dl, abnormal. Currently on lisinopril 20 mg daily, at goal <30 Personally reviewed labs: BUN-14 creatinine- 0.54 GFR- 117 Kidney function- normal B/P today- 138/72, currently on lisinopril 20 mg daily. At Goal blood pressure is <140/90 and as close to 120/80 as possible. Personally reviewed LDL - 66, currently on atorvastatin 20 mg daily. At Goal of less than 70 No history of macrovascular disease - [place] Assessment & Plan (07/20/2021 6:03 PM QUALITY CONTROL ANALYST): This is a chronic condition which is not at goal. Personally reviewed A1c today- increased to 11% Not at goal less than 7% Personally reviewed blood sugar 420 Not at goal 80-180 Medication- Continue Metformin 1000mg daily, Tradjenta 5mg daily, increase Lantus 30units daily, increase Humalog 10units - 3 times/day- 15 minutes prior to meals. Return demonstated the correct use of an insulin pen. Most likely medication non compliance. TSH -1.22, normal thyroid function, cpeptide-3.4- Type 2 Diabetes. Encouraged to monitor blood sugar 4x times a day. Encouraged annual eye exam. last dilated eye exam was [facility] in [place] Monofilament foot exam completed, protective senses intact, Urine microalbumin/creatinine ratio - <30, normal. Currently on lisinopril 20 mg daily, at goal <30 Personally reviewed labs: BUN-14 creatinine- 0.54 GFR- 117 Kidney function- normal B/P today- 128/70, currently on lisinopril 20 mg daily. At Goal blood pressure is <140/90 and as close to 120/80 as possible. Personally reviewed LDL - 66, currently on atorvastatin 20 mg daily. At Goal of less than 70 See labs in Media. No history of macrovascular disease - [place] Assessment & Plan (05/27/2021 4:38 PM CDT): This is a chronic condition which is worsening and not at goal. Personally reviewed A1c today- increased to 11% Not at goal less than 7% Personally reviewed blood sugar 307 Not at goal 80-180 Medication- Continue Metformin 1000mg daily, Tradjenta 5mg daily, increase Lantus 24units daily,increase Humalog 8units - 3 times/day- 15 minutes prior to meals. Return demonstated the correct use of an insulin pen. Most likely medication non compliance. TSH -1.22, normal thyroid function, cpeptide-3.4- Type 2 Diabetes. Encouraged to monitor blood sugar 4x times a day. Encouraged annual eye exam. last dilated eye exam was [facility] in [place] Monofilament foot exam completed, protective senses intact, Urine microalbumin/creatinine ratio - <30, normal. Currently on lisinopril 20 mg daily, at goal <30 Personally reviewed labs: BUN-13, creatinine- 069 GFR- 105 Kidney function- normal B/P today- 120/68, currently on lisinopril 20 mg daily. At Goal blood pressure is <140/90 and as close to 120/80 as possible. Personally reviewed LDL - 68, currently on atorvastatin 20 mg daily. At Goal of less than 70 No history of macrovascular disease - [place]. Assessment & Plan (02/27/2021 4:46 PM CDT): This is a chronic condition which is not at goal. Personally reviewed A1c today- 10.8% Not at goal less than 7% Personally reviewed blood sugar 271- Not at goal 80-180 Medication- Continue Metformin 1000mg daily, Tradjenta 5mg daily, Lantus 20 units daily, add meal time insulin- Humalog 6units - 15 minutes prior to lunch, the biggest meal of the day. Call blood sugars to office in 1 week for further adjustment. Demonstrated and had him return demonstated the use of an insulin pen. cpeptide to assess insulin production. TSH -1.22, normal thyroid function, cpeptide-3.4- Type 2 Diabetes. Encouraged to monitor blood sugar 3 times a day. Encouraged annual eye exam. last dilated eye exam was [facility] in [place] Monofilament foot exam completed, protective senses intact, Urine microalbumin/creatinine ratio - <30, normal currently on lisinopril 20 mg daily, at goal <30 Personally reviewed labs: BUN-13, creatinine- 069 GFR- 105 Kidney function- normal B/P today- 112/68, currently on lisinopril 20 mg daily. At Goal blood pressure is <140/90 and as close to 120/80 as possible. Personally reviewed LDL - 68, currently on atorvastatin 20 mg daily. At Goal of less than 70 No history of macrovascular disease - [place] Assessment & Plan (11/19/2020 5:16 PM CDT): This is a chronic condition which is uncontrolled with hyperglycemia, improving, but not at goal. Personally reviewed A1c today- 11.1%, which is up form 10.1%. Not at goal less than 7% Personally reviewed blood sugar 252 Not at goal 80-180 Medication- Continue Metformin 1000mg daily, Tradjenta 5mg daily, Lantus 20 units daily, add meal time insulin- Humalog 6units - 15 minutes prior to lunch, the biggest meal of the day. Call blood sugars to office in 1 week for further adjustment cpeptide to assess insulin production. TSH -1.22, normal thyroid function, cpeptide-3.4- Type 2 Diabetes. Encouraged to monitor blood sugar 3 times a day. Encouraged annual eye exam. last dilated eye exam was [facility] in [place] Monofilament foot exam completed, protective senses intact, Urine microalbumin/creatinine ratio - <30, normal currently on lisinopril 20 mg daily, at goal <30 Personally reviewed labs: BUN-13, creatinine- 069 GFR- 105 Kidney function- normal B/P today- 112/70, currently on lisinopril 20 mg daily. At Goal blood pressure is <140/90 and as close to 120/80 as possible. Personally reviewed LDL - 68, currently on atorvastatin 20 mg daily. At Goal of less than 70 No history of macrovascular disease - [place]. 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 Personally reviewed A1c today- 10.1, which is down form 12.4 on 08/16/20. Not at goal less than 7% Personally reviewed blood sugar 235 Not at goal 80-180 Medication- Continue Metformin 1000mg daily, Tradjenta 5mg daily, Basaglar 20 units daily, add meal time insulin- Fiasp 6units - 15 minutes prior to lunch, the biggest meal of the day. Call blood sugars to office in 1 week for further adjustment. Stop glipizide 15 mg to reduce the risk of hypoglycemia. Obtain cpeptide to assess insulin production. Obtain TSH to assess thyroid function Monitor blood sugar 3 times a day. Encouraged annual eye exam. last dilated eye exam was [facility] in [place] Monofilament foot exam completed, protective senses intact, Urine microalbumin/creatinine ratio - <30, normal currently on lisinopril 20 mg daily, at goal <30 Personally reviewed labs: BUN-13 , creatinine- 069 GFR- 105 Kidney function- normal B/P today- 112/70, currently on lisinopril 20 mg daily. At Goal blood pressure is <140/90 and as close to 120/80 as possible. Personally reviewed LDL - 68, currently on atorvastatin 20 mg daily. At Goal of less than 70 No history of macrovascular disease - [place]. 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 No 02/17/2024 Social Connection and Isolat ion Panel [NHANES] Answer Date Recorded In a typical week, how many times do you talk on the phone with family, friends, or neighbors? Twice a week 02/17/2024 How often do you get togethe r with friends or relatives? More than three times a week 02/17/2024 How often do you attend chur ch or nondenominational services? More than 4 times per year 02/17/2024 Do you belong to any clubs o r organizations such as denominational groups, unions, fraternal or athletic groups, or school groups? No 02/17/2024 How often do you attend meet ings of the clubs or organizations you belong to? Never 02/17/2024 Are you , , di vorced, , never , or living with a partner? 02/17/2024 AUDIT-C Answer Date Recorded Q1: How often do you have a drink containing alcohol? Never 02/16/2024 Q2: How many drinks containi ng alcohol do you have on a typical day when you are drinking? Patient does not drink Q3: How often do you have si x or more drinks on one occasion? Never 02/16/2024 Overall Financial Resource Strain (CARDIA) Answe r Date Recorded How hard is it for you to pa y for the very basics like food, housing, medical care, and heating? Not hard at all 02/17/2024 PHQ-2 Answer Date Recorded PHQ-2 Total Score (If total score is 3 or more points, staff should administer the PHQ-9) 0 01/15/2022 Hunger Vital Sign Answer Date Recorded Within the past 12 months, y ou worried that your food would run out before you got the money to buy more. Never true 02/17/20 24 Within the past 12 months, t he food you bought just didn't last and you didn't have money to get more. Never true 02/17/2024 PRAPARE - Transportation Answer Date Re corded In the past 12 months, has l ack of transportation kept you from medical appointments or from getting medications? No 01/28 In the past 12 months, has l ack of transportation kept you from meetings, work, or from getting things needed for daily living? No 02/17/2024 Housing Stability Vital Sign Answer Ernesto e Recorded In the last 12 months, was t here a time when you were not able to pay the mortgage or rent on time? No 02/17/2024 In the past 12 months, how m any times have you moved where you were living? 0 02/17/2024 At any time in the past 12 m [facility], were you homeless or living in a residential (including now)? No 02/17/2024 Personal Safety Answer Date Recorded Have you ever been in or are you currently in a harmful physical or emotional relationship or is someone making you feel afraid or unsafe? 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 Not on file Not on file N ot on file Last Filed Vital Signs Vital Sign Reading Time Taken Comments Blood Pressure 134/76 01/08/2025 2:55 PM CDT Pulse 74 02/18/2024 12:00 PM CDT Temperature 36.6 C (97.8 F) 02/18/2024 11:10 AM CDT Respiratory Rate 18 02/18/2024 11:10 AM CDT Oxygen Saturation 100% 02/18/2024 11:10 AM CDT Inhaled Oxygen Concentration - - Weight 84.4 kg (186 lb 1.6 oz) 01/08/2025 2:55 P M CDT Height 172.7 cm (5' 8) 01/08/2025 2:55 PM CDT Body Mass Index 28.3 01/08/2025 2:55 PM CDT Plan of Treatment Upcoming Encounters Date Type Department Care Team (Late st Contact Info) Description 05/13/2025 3:00 PM CDT Office Visit [facility] at [address] [place] [address] Daxa Zimmerman, [employer]OLOGY INTER[employer] [address] [place] [address] [address] [place] [id number] Procedures Procedure Name Priority Date/Time Associated Diagnosis Comments EGFR Routine 01/08/2025 3:28 PM CDT Type 2 diabetes mellitus with hyperglycemia, with long-term current use of insulin (HCC) COMPREHENSIVE METABOLIC PANEL Routine 01/08/2025 3:28 PM CDT Type 2 diabetes mellitus with hyperglycemia, with long-term current use of insulin (HCC) ALBUMIN CREATININE RATIO, URINE Routine 01/08/2025 3:28 PM CDT Type 2 diabetes mellitus with hyperglycemia, with long-term current use of insulin (HCC) LIPID PANEL Routine 01/08/2025 3:28 PM CDT Type 2 diabetes mellitus with hyperglycemia, with long-term current use of insulin (HCC) POCT HEMOGLOBIN A1C Routine 01/08/2025 3 :04 PM CDT Type 2 diabetes mellitus with hyperglycemia, with long-term current use of insulin (HCC) POCT GLUCOSE Routine 01/08/2025 2:56 PM CDT Type 2 diabetes mellitus with hyperglycemia, with long-term current use of insulin (HCC) DIABETIC EYE EXAM Routine 03/27/2024 from Last 3 Months or Most Recently Relevant to Health Maintenance Results * eGFR (01/08/2025 3:28 PM CDT) eGFR >90 >=60 mL/min/1. 73 m2 Comment: Interpretive Data Reference Interval Normal >/= 90 mL/min/1.73m2 Mildly decreased* 60 - 89 mL/min/1.73m2 Mildly to moderately decreased 45 - 59 mL/min/1.73m2 Moderately to severely decreased 30 - 44 mL/min/1.73m2 Severely decreased 15 - 29 mL/min/1.73m2 Kidney Failure < 15 mL/min/1.73m2 *Relative to young adult level Estimated glomerular filtration rate is determined by the 2020 CKD-EPI equation recommended by the National Kidney Foundation (A Unifying Approach to GFR Estimation: Recommendations of the NKF-ASK Task Force on Reassessing the Inclusion of Race in Diagnosing Kidney Disease, JASN 2020). The CKD-EPI equation should not be used for patients with unstable renal function and has not been validated in children and those over 70. Current interpretive data was last reviewed 2021. Testing performed by: [facility], [address] [place] [address]., [address] Blood 01/08/2025 3:28 PM CDT 01/08/2025 8:58 PM CDT us Daxa Zimmerman [employer] LAB BLOOD ORDERABLES Final Resu lt JUAN [id number] [facility] Department [place] [address] * (ABNORMAL) Albumin Creatinine Ratio, Urine (01/08/2025 3:28 PM CDT) Albumin Ur 456.6 mg/L Comment: Interpretive Data No reference range established. Current interpretive data was last revised 2019. Testing performed by: [facility], [address] [place] [address]., [address] Creatinine Ur 124.5 mg/dL JUAN AZUL Comment: Interpretive Data No reference range established. Current interpretive data was last revised 2019. Testing performed by: [address] [address] Albumin Creatinine Ratio, Ur 367(H) 1 - 29 mg/g JUAN AZUL Comment:Testing performed by : [address] [address] Urine 01/08/2025 3:28 PM CDT 01/08/2025 8:21 PM CDT us Daxa Zimmerman [employer] LAB URINE ORDERABLES Final Resu lt JUAN [address] Department of Laboratories [place], [place] [id number] * Lipid panel (01/08/2025 3:28 PM CDT) Cholesterol 145 30 - 199 mg/dL Comment: Interpretive Data Ages < or = 19 years Acceptable: <170 mg/dL Borderline high: 170-199 mg/dL High: >or= 200 mg/dL Ages > or = 20 years Desirable: <200 mg/dL Borderline high: 200-239 mg/dL High: >or= 240 mg/dL Literature References: 1. Expert Panel on Integrated Guidelines for Cardiovascular Health and Risk Reduction in Children and Adolescents. Pediatrics 2011;128:S213 2. NCEP Expert Panel. Circulation 2004;110:227 Current Interpretive Data was last revised on 2018. Testing performed by: [address] [address] Triglycerides 96 <=149 mg/dL JUAN AZUL Comment: Interpretive Data Ages < or = 9 years Acceptable: <75 mg/dL Borderline high: 75-99 mg/dL High: >or= 100 mg/dL Ages 10 to 20 years Acceptable: <90 mg/dL Borderline high: 90-129 mg/dL High: >or= 130 mg/dL Ages > or = 20 years Desirable: <150 mg/dL Borderline high: 150-199 mg/dL High: 200-499 mg/dL Very high: >or= 499 mg/dL Literature References: 1. Expert Panel on Integrated Guidelines for Cardiovascular Health and Risk Reduction in Children and Adolescents. Pediatrics 2011;128:S213 2. NCEP Expert Panel. Circulation 2004;110:227 Current Interpretive Data was last revised on 2018. Testing performed by: [facility], [address] [place] [address]., [address] HDL 44 >=40 mg/dL [facility] Comment: Interpretive Data Ages < or = 19 years Acceptable: >45 mg/dL Borderline low: 40-45 mg/dL Low: <40 mg/dL Ages > or = 20 years Desirable: >or= 60 mg/dL Low: <40 mg/dL Literature References: 1. Expert Panel on Integrated Guidelines for Cardiovascular Health and Risk Reduction in Children and Adolescents. Pediatrics 2011;128:S213 2. NCEP Expert Panel. Circulation 2004;110:227 Current Interpretive Data was last revised on 2018. Testing performed by: [address] [address] LDL, calculated 83 <=129 mg/dL [facility] Comment: Interpretive Data Ages < or = 19 years Acceptable: <110 mg/dL Borderline high: 110-129 mg/dL High: >or= 130 mg/dL Ages > or = 20 years Optimal: <100 mg/dL Near optimal: 100-129 mg/dL Borderline high: 130-159 mg/dL High: >160 mg/dL Calculated using the Fili LDL-C estimating equation. This equation was implemented on 2024. Prior to this date LDL-C was estimated using the Friedewald equation. Literature References: 1. Expert Panel on Integrated Guidelines for Cardiovascular Health and Risk Reduction in Children and Adolescents. Pediatrics 2011;128:S213 2. NCEP Expert Panel. Circulation 2004;110:227 3. Fili Walker al. JOSE LUIS Cardiol. 2020 December 27;5(5):540-548. doi: 10.1001/[email or web address] Current Interpretive Data was last revised on 2024. Testing performed by: [address] [address] Non-HDL Cholesterol 101 mg/dL JUAN Comment: Interpretive Data Ages < or = 19 years Acceptable: <120 mg/dL Borderline high: 120-144 mg/dL High: >145 mg/dL Ages > or = 20 years When triglycerides are >200 mg/dL, Non-HDL cholesterol is a secondary target of therapy with treatment goals that are 30 mg/dL greater than the LDL cholesterol target. Literature References: 1. Expert Panel on Integrated Guidelines for Cardiovascular Health and Risk Reduction in Children and Adolescents. Pediatrics 2011;128:S213 2. NCEP Expert Panel. Circulation 2004;110:227 Current Interpretive Data was last revised on 2018. Testing performed by: [address] [address] Chol/HDL ratio 3 JUAN Comment:Testing performed by : [address] [address] Blood 01/08/2025 3:28 PM CDT 01/08/2025 8:21 PM CDT Narrative JUAN - 01/08/2025 9:28 PM CDT These lab test should be done fasting. This means do not eat or drink for at least 12 hours prior to getting your blood drawn. us Daxa Zimmerman NP LAB BLOOD ORDERABLES Final Resu lt JUAN [address] Department [place] [address] * (ABNORMAL) Comprehensive metabolic panel (01/08/2025 3:28 PM CDT) Sodium 139 135 - 145 mmol/L Comment:Testing performed by : [address] [address] Potassium, pl 4.2 3.3 - 4.9 mmol/L JUAN Comment:Testing performed by : [address] [address] Chloride 104 97 - 110 mmol/L JUAN Comment:Testing performed by : [address] [address] CO2 25 22 - 32 mmol/L JUAN Comment:Testing performed by : [address] [address] Anion gap 10 2 - 15 mmol/L CERNER CH Comment:Testing performed by : [address] [address] BUN 13 6 - 25 mg/dL CERNER CH Comment:Testing performed by : [address] [address] Creatinine 0.55(L) 0.80 - 1.30 mg/dL CERNER CH Comment:Testing performed by : [address], [address] Glucose 244(H) 70 - 199 mg/dL CERNER CH Comment: Interpretive Data Fasting glucose >/= 126 mg/dl is diagnostic for diabetes. Fasting is defined as no caloric intake for at least 8 hours. Fasting glucose between 100 mg/dl to 125 mg/dl is diagnostic of prediabetes. In a patient with classic symptoms of hyperglycemia or hyperglycemic crisis, a random glucose >/= 200 mg/dl is diagnostic for diabetes. In the absence of unequivocal hyperglycemia, results should be confirmed by repeat testing. The classification and Diagnosis of Diabetes Diabetes Care 2021; 46: S19-S40. Current interpretive data was last revised 2022. Testing performed by: [address] [address] Calcium 10.0 8.5 - 10.3 mg/dL CERNER CH Comment:Testing performed by : [address] [address] Bilirubin, total 0.2 0.1 - 1.2 mg/dL CERNER CH Comment:Testing performed by : [address], [address] Protein, pl 7.6 6.5 - 8.5 g/dL CERNER CH Comment:Testing performed by : [address], [address] Albumin 4.2 3.5 - 5.0 g/dL CERNER CH Comment:Testing performed by : [address], [address] Alk phos 72 40 - 130 Units/L CERNER CH Comment:Testing performed by : [address], [address] ALT 38 7 - 55 Units/L CERNER CH Comment:Testing performed by : [facility], [address] [place] [address]., [address] AST 40 10 - 50 Units/L [facility] Comment:Testing performed by : [facility], [address] [place] [address]., [address] Blood 01/08/2025 3:28 PM CDT 01/08/2025 8:21 PM CDT Daxa Zimmerman NP LAB BLOOD ORDERABLES Final Resu lt [facility] [id number] [place] [address] Department [place] [address] * (ABNORMAL) POCT hemoglobin A1c (01/08/2025 3:04 PM CDT) Hemoglobin A1C, POC 8.0(A) 4.0 - 5.6 % Blood 01/08/2025 3:04 PM CDT Daxa Zimmerman NP POINT OF CARE TEST ORDERABLES F inal Result * POCT glucose (01/08/2025 2:56 PM CDT) Glucose Blood, POC 256 Normal Fasting 70 - 100, Random <200 mg/dL Blood 01/08/2025 2:56 PM CDT Daxa Zimmerman NP POINT OF CARE TEST ORDERABLES F inal Result * Diabetic Eye Exam (03/27/2024) 03/27/2024 Historical Provider HEALTH MAINTENANCE Final Result from Last 3 Months or Most Recently Relevant to Health Maintenance Insurance Advance Directives For more information, please contact: [phone] * Full Code (Latest Code Status on File) Date Activated Date Inactivated Comments 02/16/2024 8:02 PM 02/18/2024 5:44 PM 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
--- OUTSIDE RECORDS SUMMARY | 2025-03-20 14:31 | XMS_ITS | Continuity of Care Document ---
[facility] Organization [facility] [address] [facility] [address] [address] [place] [id number] Phone Care Team Providers Care Pest Control Worker Helper Name Role Phone Murali Motley MD Unavailable Unavailable Allergies, Adverse Reactions, Alerts Substance Reaction Status Criticality No Known Allergies Active No Inform ation Medications Medication Instructions Dosage Effective Dates (start - stop) Status Comments metformin 1,000 mg tablet - Active lisinopril 20 mg tablet - Active Tradjenta 5 mg tablet - Active glipizide ER 5 mg tablet, extended release 24 hr - Active atorvastatin 20 mg tablet - Active OneTouch Ultra Test strips - Active OneTouch Delica Lancets 30 gauge - Active OneTouch Ultra2 kit - Active nystatin 100,000 unit/gram topical cream - Active FreeStyle Lite Strips - Active FreeStyle Lancets 28 gauge - Active JANUVIA (unknown strength) Not Available - Active Aspirin 81 mg Chewable Tab chew 1 tablet (81MG) by ORAL route every day 81 MG - Active metformin 500 mg tablet take 1 tablet (500MG) by oral route 2 times every day with morning and evening meals 500 MG - No Longer Active atorvastatin 10 mg tablet take 1 tablet (10MG) by oral route every day 10 MG - No Longer Active LISINOPRIL (unknown strength) take 1 tablet by oral route every day Not Available - No Longer Active GLIPIZIDE (unknown strength) take 1 tablet by ORAL route 2 times every day before meals Not Available - No Longer Active Procedures Procedure Date Eye Exam, New Patient Eye Exam & Treatment Eye Exam & Treatment Eye Exam & Treatment Office/outpatient Visit, Est Office/outpatient Visit, Est Office/outpatient Visit, Est Office/outpatient Visit, Est Eye Exam & Treatment Visual Field Examination(s) Office/outpatient Visit, Est Office/outpatient Visit, Est Corneal Pachymetry Office/outpatient Visit, Est Advance Directives Directive Yes / No Effective Date File Name No Information Encounters Encounter Description Practice Location Reason(s) For Visit Diagnoses Date Provider Providers Copied on Encounter [facility] [employer] [facility], [address], [place], [place], [id number], [place] tel:[phone] [place] ANGELIQUE Professional diabetic eye exam (chief complaint) Glaucomatous cupping of optic disc of both eyesType 2 diabetes mellitus without complicationsC halazion left lower eyelidAge-rela shelly nuclear cataract, right eyeAge-related nuclear cataract, left eye Tolu Carrion. [address] [facility], [facility] [place], [id number], [place]. tel:[phone] Referring Provider: Murali Schroeder [address] [facility] [place], [address] . tel:[phone] [facility] [employer] [facility], [address], [place], [place], [address], tel:[phone] SEC [place] ANGELIQUE Professional No Information Tolu Carrion. [address] [facility], [facility] [place], [place], [address], [place]. tel:[phone] [facility], [address], [place], [place], [address], [place] tel:[phone] SEC [place] MERINO Professional ILL-DEFINED EYE DIS NECDiabetes Mellitus Type 2, UncomplicatedC UPPING OF OPTIC DISC Oct-2 8-201 3 Wank[place] Murali. [address], [place], [place], [id number], [place]. tel:[phone] Referring Provider: Murali Schroeder, [address], [place], [address] . tel:[phone] [facility], [address], [place], [place], [address], [place] tel:[phone] SEC [place] MERINO Professional Diabetes Mellitus Type 2, UncomplicatedO PN ANGL W BORDERLN FIND Low Risk Aug-2 2-201 2 Wankum Murali. [address], [place], [place], [address], [place]. tel:[phone] Referring Provider: Muralilaura Schroeder, [address], [place], [address] . tel:[phone] [facility], [address], [place], [place], [address], [place] tel:[phone] SEC [place] MERINO Professional No Information 1 Wankum Murali. [address], [place], [place], [address], [place]. tel:[phone] Office/outpa tient Visit, Est [facility], [address], [place], [place], [address], [place] tel:[phone] SEC Bunny MERINO Professional No Information 201 0 Wankum Murali. [address], [place], [address], [place]. tel:[phone] Office/outpa tient Visit, [facility], [address], [place], [place], [address], [place] tel:[phone] SEC [place] Professional No Information May- 2-200 9 Tolu Carrion. [address], [place], [address], [place]. tel:[phone] Office/outpa tient Visit, [facility], [address], [place], [place], [address], [place] tel:[phone] [place] Professional No Information 2 2200 9 Tolu Carrion. [address], [place], [address], [place]. tel:[phone] Office/outpa tient Visit, [facility], [address], [place], [place], [address], [place] tel:[phone] [place] Professional No Information Sep-2 5200 9 Tolu Carrion. [address], [address] [place], [address], [place]. tel:[phone] [facility], [address], [place], [place], [address], [place] tel:[phone] SEC [place] Professional No Information Aug-0 6-200 9 Tolu Carrion. [address], [address] [place], [address], [place]. tel:[phone] Referring Provider: Murali Schroeder, [address] [place], [address] . tel:[phone] Office/outpa tient Visit, [facility], [address] [place] [address] [address], [place], [place], [address], tel:[phone] SEC B[place] MERINO Professional No Information 2 7200 8 Tolu Carrion. [address] [facility], [facility] [place], [place], [address], . tel:[phone] Office/outpa tient Visit, [facility], [address] [place] [address] [address], [place], [place], [address], tel:[phone] SEC Bunny MERINO Professional No Information Oct-0 3-200 7 Tolu Carrion. [address] [facility], [facility] [place], [place], [address], . tel:[phone] Referring Provider: Murali Schroeder, [address] [place], [address] . tel:[phone] Office/outpa tient Visit, [facility], [address] [place] [address] [address], [place], [place], [address], tel:[phone] SEC Bunny MERINO Professional No Information 2 0200 7 Tolu Carrion. [address] [facility] [place], [place], [address], . tel:[phone] Family History Family Member Type Diagnosis Age At Onset Close relative Problem (finding) Diabetes mellitus Problem (finding) Payers Payer name Insurance type Covered libertarian ID Authorailaa hirampatricio(s) Medicaid [facility] [id number] Social History Type Description Quantity Date Captured Comments Alcohol Use Details No Caffeine Use Details 5 cups per day Tobacco Use Status No Information Smoking Status Never smoker Sex Male Chief Complaint And Reason For Visit From encounter dated '04/04/2017 15:30'. diabetic eye exam (chief complaint). Description: The 52 year old male presents for a complete TypeII diabetic eye exam ou. Monitoring IOP due to cupping ou. BS was 160 yesterday. Patient states hasa bump LLL. Patient states Dr. Motley removed it once before. Patient states he has gotten hit in eyes [place]. Reason For Referral Reason For Referral No Information History Of Present Illness Encounter Date Complaint History Of Prese nt Illness diabetic eye exam The 52 year ol d male presents for a complete Type II diabetic eye exam ou. Monitoring IOP due to cupping ou. BS was 160 yesterday. Patient states has a bump LLL. Patient states Dr. Motley removed it once before. Patient states he has gotten hit in eyes [place]. 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 Mild cataracts will continue to monitor. Normal IOP with optic disc cupping OU. Diabetes type II: no background retinopathy, no signs of neovascularization noted. Discussed ocular and systemic benefits of blood sugar control. DM letter sent to Dr Boyd. No signs of AMD OU. Return to clinic in 2 months for early am IOL check, 24-2 visual llanos and OCT ON or sooner with any problems. Follow up - 2 months for early am IOP check, 24-2 visual llanos and OCT ON cupping but nl iop and nc Relate d to CUPPING OF OPTIC DISC - yrly Related to CUPPI NG OF OPTIC DISC no aligner typewriter - Educational materials provided to patient.letter to Related to Diabetes Mellitus Type 2, Uncomplicated - 1yr Related to Diabe norma Mellitus Type 2, Uncomplicated - 1 year complete Related to Josie betes Type II Glaucoma Suspect, OU - large CDR normal IOP - established, stable - vision not affected - will continue to monitor - Discussed dx with pt. Stable at this time. No treatment. Will monitor. Related to Glaucoma Suspect Diabetes Type II, No FARM EQUIPMENT ENGINEER - Discussed dx with pt. No FARM EQUIPMENT ENGINEER seen. Letter sent to Dr. Davis. Related to Diabetes Type II Assessments Type Assessment Date assessment Glaucomatous cupping of optic di sc of both eyes assessment Type 2 diabetes mellitus without complications assessment Chalazion left lower eyelid assessment Age-related nuclear cataract, ri ght eye assessment Age-related nuclear cataract, le ft eye Patient Care Teams Name Effective Dates (start - stop) Status Members No Information
--- OUTSIDE RECORDS SUMMARY | 2025-03-20 14:31 | XMS_ITS | Clinical Summary ---
Author Organization [facility] Address [address] [place] [phone] Care Team Providers Care Maintenance Representative Name Role Phone Ravi Rosas MD Primary Care Provider [phone] Allergies No known active allergies Medications latanoprost [...] with long-term current use of insulin (HCC) Take 1 tablet (1,000 mg total) by mouth 2 (two) times a day with meals 180 tablet 4 4 Active atorvastatin (LIPITOR) 20 mg tablet Take 1 tablet (20 mg total) by mouth nightly 90 tablet 4 4 Active insulin glargine (LANTUS) 100 unit/mL vial for injectionIndic ations:Type 2 diabetes mellitus with hyperglycemia, with long-term current use of insulin (HCC) Inject 48 Units under the skin nightly [...] 03/11/2023 Assessment & Plan (07/05/2024 3:45 PM CASE FINISHING MACHINE ADJUSTER): This is a chronic condition which is [...] prescribed. Assessment & Plan (07/26/2023 3:18 PM CASE FINISHING MACHINE ADJUSTER): This is a chronic condition which is [...] week. Encouraged to take medications as prescribed. Dexcom 6 continuous glucose monitoring device Assessment & Plan (01/08/2025 3:07 PM CDT): Continuous glucose monitor (cgm) applied from 12/26/2024 to 01/08/2025 This device was placed for monitor and treatment of blood sugar. Interpretation of data- average blood sugar 261. 18% time in range. 82% hyperglycemia. 1% hypoglycemia Assessment & Plan (10/11/2024 3:01 PM CASE FINISHING MACHINE ADJUSTER): Continuous glucose monitor (cgm) applied from 09/28/2024 to 10/11/2024 This device was placed for monitor and treatment of blood sugar. Interpretation of data- average blood sugar to 75. 10% time in range. 90% hyperglycemia. 0 hypoglycemia Assessment & Plan (07/05/2024 3:25 PM CASE FINISHING MACHINE ADJUSTER): Continuous glucose monitor (cgm) applied from 06/22 [...] 07/29 Assessment & Plan (07/05/2024 3:44 PM CASE FINISHING MACHINE ADJUSTER): This is a chronic condition which is [...] Lisinopril Assessment & Plan (07/26/2023 3:18 PM CASE FINISHING MACHINE ADJUSTER): This is a chronic condition which is [...] eye exam. last dilated eye exam was [facility] Monofilament foot exam completed. Some protective senses intact loss of protective senses at some areas of. Urine microalbumin/creatinine ratio - not at goal <30 treated with lisinopril Personally reviewed CMP GFR- 103 Kidney function- normal B/P today- at goal of <140/90. continue lisinopril Personally reviewed lipid panel. Not at Goal of less than 70. Continue atorvastatin Assessment & Plan (08/16/2022 3:16 PM CASE FINISHING MACHINE ADJUSTER): This is a chronic condition which is [...] eye exam. last dilated eye exam was [facility] Monofilament foot exam completed, some [...] No history of macrovascular disease - CVA, CA. Primary hypertension 09/05/2017 Assessment & Plan (07/05/2024 3:45 PM CASE FINISHING MACHINE ADJUSTER): This is a chronic condition which is [...] prescribed. Assessment & Plan (07/26/2023 3:19 PM CASE FINISHING MACHINE ADJUSTER): This is a chronic condition which is [...] prescribed. Assessment & Plan (08/16/2022 3:18 PM CASE FINISHING MACHINE ADJUSTER): This is a chronic condition which is [...] prescribed. Assessment & Plan (10/20/2021 4:09 PM CASE FINISHING MACHINE ADJUSTER): This is a chronic condition which is at goal Goal is <140/90 Personally reviewed labs. B/P today- 138/72, currently on lisinopril 20 mg daily. Avoid caffeine, caffeine will raise blood pressure and excessive alcohol consumption. Monitor your weight and B/P. Encouraged to take medications as prescribed. Assessment & Plan (07/20/2021 6:05 PM CASE FINISHING MACHINE ADJUSTER): This is a chronic condition which is [...] daily. Assessment & Plan (09/12/2020 5:20 PM CASE FINISHING MACHINE ADJUSTER): This is a chronic condition and is [...] complication, with long-term current use of insulin ([facility]) 09/05/2017 08/16/2022 Assessment & Plan (05/13/2022 4:52 [...] eye exam. last dilated eye exam was [facility] in [place] Monofilament foot exam completed, protective senses intact, [...] No history of macrovascular disease - CVA, CA. Assessment & Plan (01/15/2022 11:00 AM CDT): [...] eye exam. last dilated eye exam was [facility] in [place] Monofilament foot exam completed, protective senses intact, [...] No history of macrovascular disease - CVA, CA. Assessment & Plan (12/02/2021 11:29 AM CDT): [...] eye exam. last dilated eye exam was [facility] in [place] Monofilament foot exam completed, protective senses intact, [...] No history of macrovascular disease - CVA, CA. Assessment & Plan (10/20/2021 5:00 PM CASE FINISHING MACHINE ADJUSTER): This is a chronic condition which is [...] eye exam. last dilated eye exam was [facility] in [place] Monofilament foot exam completed, protective [...] No history of macrovascular disease - CVA, CA. Assessment & Plan (07/20/2021 6:03 PM CASE FINISHING MACHINE ADJUSTER): This is a chronic condition which is [...] eye exam. last dilated eye exam was [facility] [place] Monofilament foot exam completed, protective [...] No history of macrovascular disease - CVA, CA. Assessment & Plan (05/27/2021 4:38 PM CDT): [...] eye exam. last dilated eye exam was [facility] in [place] Monofilament foot exam completed, protective senses intact, [...] No history of macrovascular disease - CVA, CA. Assessment & Plan (02/27/2021 4:46 PM CDT): [...] eye exam. last dilated eye exam was [facility] in [place] Monofilament foot exam completed, protective senses intact, [...] No history of macrovascular disease - CVA, CA. Assessment & Plan (11/19/2020 5:16 PM CDT): [...] eye exam. last dilated eye exam was [facility] [place] Monofilament foot exam completed, protective senses intact, [...] No history of macrovascular disease - CVA, CA. Assessment & Plan (09/12/2020 5:22 PM CASE FINISHING MACHINE ADJUSTER): This is a chronic condition which is [...] eye exam. last dilated eye exam was [facility] [place] Monofilament foot exam completed, protective senses intact, [...] No history of macrovascular disease - CVA, CA. 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 Keratosis, senilis 01/21/2016 2 Encounters Date Type Department Care Team Description 03/05/2025 Telephone [facility] Diabetes Endocrine Care at [address] [phone] Daxa Zimmerman NP 02/07/2025 5:30 PM CDT Therapy [facility] [place] [address] [id number] Maria C Hernandez, PT Dizziness and giddiness (Primary Dx); Vertigo 02/07/2025 Plan of Care Documentation [facility] [place] [id number] 01/28/2025 Telephone [facility] Diabetes Endocrine Care at [address] [place] [phone] Daxa Zimmerman, KIRSTIE 01/09/2025 Results Follow-Up [facility] Diabetes Endocrine Care at [address] [place] [phone] Daxa Zimmerman NP Lipid panel, Albumin Creatinine Ratio, Urine, Comprehensive metabolic panel, eGFR 01/08/2025 3:30 PM CDT Lab [facility] Outpatient Lab - Outpatient Center at [address] [address] Type 2 diabetes mellitus with hyperglycemia, with long-term current use of insulin ([facility]) 01/08/2025 3:00 PM CDT Office Visit [facility] Diabetes Endocrine Care at [address] [place] [phone] Daxa Zimmerman NP Type 2 diabetes mellitus with hyperglycemia, with long-term current use of insulin ([facility]) (Primary Dx); Mixed 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 ([facility]); Primary hypertension; Dexcom 6 continuous glucose monitoring device from Last 3 Months Medical History Medical History Date Comments Diabetes mellitus (HCC) Type II or unspecified type diabetes mellitus with renal manifestations, uncontrolled(250.42) (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) 08/16/2022 Social History Tobacco Use Types Packs/Day Years Used Date Smoking Tobacco: Never Tobacco Cessation:Counseling Given: Not Answered [facility] [employer] Answer Date Recorded In the past 12 months has [employer], [employer], oil, or water [employer] threatened to shut off services in your [...] any clubs o r organizations such as orthodox groups, unions, fraternal or athletic groups, or [...] any time in the past 12 m [facility], were you homeless or living in a usp (including now)? No 02/17/2024 Personal Safety Answer Date Recorded Have you ever been in or are you currently in a harmful physical or emotional relationship or is someone making you feel afraid or unsafe? 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 Not on file Not on file N ot on file Obstetrics History Last Filed Vital Signs Vital Sign Reading [...] Description 05/13/2025 3:00 PM CDT Office Visit [facility] Diabetes Endocrine Care at [address] [place] [phone] Daxa Zimmerman, COLLEGE AND CAREER COUNSELOR [address] [facility] [address] [place] [address] Health Maintenance Due Date Last Done Comments Colon Cancer Screening-Colonoscopy 1963 Hepatitis C Screening 1963 Prostate Cancer Screening-PSA 1963 Hepatitis B Screening 1981 Regular Well Visit/Exam 18-64 1981 Zoster Vaccine (1 of 2) 2013 Pneumococcal vaccine <65 (2 of 2 - PCV) 08/05/2017 08/05/2016, 06/13/2006 Depression Screening 01/15/2023 01/15/2022 Covid-19 Vaccine (3 - 2023-2 5 season) 2024 12/19/2020, 11/21/2020 Dilated Eye Exam 03/27/2025 03/27/2024, 12/03/2022 Influenza Vaccine (#1) 2025 , 09/13/2023, 08/16/2022, Additional history exists Foot Exam 07/05/2025 07/05/2024, 02/28, 07/26/2023, Additional history exists Hemoglobin A1C 07/11/2025 01/08/2025, 09/29, 07/05/2024, Additional history exists Albumin Creatinine Ratio, Urine 01/08/2026 01/08/2025, 03/27/2024, 03/11/2023, Additional history exists Lipid Panel 01/08/2026 01/08/2025, 01/28, 03/11/2023, Additional history exists eGFR 01/08/2026 01/08/2025, 01/28, 02/17/2024, Additional history exists DTaP/Tdap/Td Vaccine (4 - Td or Tdap) 05/18/2032 05/18/2022, 07/27/2010, 09/02/2008 Procedures Procedure Name Priority Date/Time Associated Diagnosis [...] was last reviewed 2021. Testing performed by: [address] [address] Blood 01/08/2025 3:28 PM CDT 01/08/2025 8:58 PM CDT us Daxa Zimmerman NP LAB BLOOD ORDERABLES Final Resu lt [facility] [id number] [facility] Department [place] [address] * (ABNORMAL) Albumin Creatinine Ratio, Urine (01/08/2025 3:28 PM CDT) Albumin Ur 456.6 mg/L Comment: Interpretive Data No reference range established. Current interpretive data was last revised 2019. Testing performed by: [address] [place]., [address] Creatinine Ur 124.5 mg/dL JUAN Comment: Interpretive Data No reference range established. Current interpretive data was last revised 2019. Testing performed by: [address] [address] Albumin Creatinine Ratio, Ur 367(H) 1 - 29 mg/g JUAN Comment:Testing performed by : [address] [address] Urine 01/08/2025 3:28 PM CDT 01/08/2025 8:21 PM CDT us Daxa Zimmerman NP LAB URINE ORDERABLES Final Resu lt JUAN [address] [place] [address] * Lipid panel (01/08/2025 3:28 PM CDT) [...] last revised on 2018. Testing performed by: [address] [address] Triglycerides 96 <=149 mg/dL JUAN AZUL Comment: [...] last revised on 2018. Testing performed by: [facility], [address] [place] [address]., [address] HDL 44 >=40 mg/dL JUAN Comment: Interpretive Data Ages < [...] last revised on 2018. Testing performed by: [address] [address] LDL, calculated 83 <=129 mg/dL JUAN Comment: Interpretive Data Ages < [...] NCEP Expert Panel. Circulation 2004;110:227 3. Fili Nguyen et al. JOSE LUIS Cardiol. 2020 December 27;5(5):540-548. doi: 10.1001/jamacardio.2020.0013 Current Interpretive Data was last revised on 2024. Testing performed by: [address] [address] Non-HDL Cholesterol 101 mg/dL JUAN Comment: Interpretive [...] last revised on 2018. Testing performed by: [address] [address] Chol/HDL ratio 3 CERNER Comment:Testing performed by : [address] [address] Blood 01/08/2025 3:28 PM CDT 01/08/2025 8:21 PM CDT Narrative JUAN - 01/08/2025 9:28 PM CDT These lab test should be done fasting. This means do not eat or drink for at least 12 hours prior to getting your blood drawn. us Daxa Zimmerman NP LAB BLOOD ORDERABLES Final Resu lt JUAN [address] Department [place] [address] * (ABNORMAL) Comprehensive metabolic panel (01/08/2025 3:28 PM CDT) Sodium 139 135 - 145 mmol/L Comment:Testing performed by : [address] [address] Potassium, pl 4.2 3.3 - 4.9 mmol/L JUAN Comment:Testing performed by : [address] [address] Chloride 104 97 - 110 mmol/L JUAN Comment:Testing performed by : [address] [address] CO2 25 22 - 32 mmol/L JUAN Comment:Testing performed by : [address] [address] Anion gap 10 2 - 15 mmol/L CERNER CH Comment:Testing performed by : [address] [address] BUN 13 6 - 25 mg/dL CERNER CH Comment:Testing performed by : [address] [address] Creatinine 0.55(L) 0.80 - 1.30 mg/dL CERNER CH Comment:Testing performed by : [address] [address] Glucose 244(H) 70 - 199 mg/dL CERNER [...] was last revised 2022. Testing performed by: [address] [address] Calcium 10.0 8.5 - 10.3 mg/dL CERNER CH Comment:Testing performed by : [address] [address] Bilirubin, total 0.2 0.1 - 1.2 mg/dL CERNER CH Comment:Testing performed by : [address] [address] Protein, pl 7.6 6.5 - 8.5 g/dL CERNER CH Comment:Testing performed by : [address] [address] Albumin 4.2 3.5 - 5.0 g/dL CERNER CH Comment:Testing performed by : [address] [address] Alk phos 72 40 - 130 Units/L CERNER CH Comment:Testing performed by : [address], [address] ALT 38 7 - 55 Units/L CERNER CH Comment:Testing performed by : [address] [address] AST 40 10 - 50 Units/L JUAN Comment:Testing performed by : [facility], [address] [place] [address]., [address] Blood 01/08/2025 3:28 PM CDT 01/08/2025 8:21 PM CDT Daxa Zimmerman NP LAB BLOOD ORDERABLES Final Resu lt JUAN [id number] [place] [address] [place] [address] * (ABNORMAL) POCT hemoglobin A1c (01/08/2025 3:04 [...] Most Recently Relevant to Health Maintenance Insurance [facility] Advance Directives For more information, please contact: [phone] * Full Code (Latest Code Status on File) Date Activated Date Inactivated Comments 02/16/2024 8:02 PM 02/18/2024 5:44 PM Care Teams Maintenance Representative Relationship Specialty Start Date End Date Ravi Rosas MD [address] [place] [address] [place] [id number] PCP - General Internal Medicine 10/20/21
--- OUTSIDE RECORDS SUMMARY | 2025-03-20 14:31 | XMS_ITS | Data Portability ---
Author Organization [facility] Address 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 Plan of Treatment Reminders Order Date Submit Date Provider Last Modified By Organization Details Last Modified Time Details Appointments ANY 15 2024 02:45P M AVRIL MCKAY, CERAMIC RESTORER-BC Not available Not available Not available Lab lipid panel, serum 2024 025 [facility], [address] [place] [address], [place], [address], 02/01/2025 03:07:49 CBC w/ auto diff 2024 025 [facility], [address] [place] [address], [place], [address], 02/01/2025 03:07:51 TSH + free T4, serum 2024 025 [facility], [address] [place] [address] 2, [place], [address], 02/01/2025 10:37:07 PSA, total, serum or plasma 2024 025 [facility], [address] [place] [address], [place], [address], 02/01/2025 10:37:08 microal bumin/c reatini ne, mass ratio, urine 2024 025 [facility], [address] [place] [address] 2, [place], [address], 02/01/2025 10:37:06 CMP, serum or plasma 2024 025 [facility], [address] [place] [address] 2, [place], [address], 02/01/2025 03:07:50 fecal occult blood, immunoa ssay, stool 2023 024 [facility], [address] [place] [address] 2, [place], [address], 06/13/2024 16:15:32 fecal occult blood, immunoa ssay, stool 2023 024 [facility], [address] [place] [address], [place], [address], 02/21/2024 08:09:28 fecal occult blood, immunoa ssay, stool 2023 024 [facility], [address] [place] [address], [place], [address], 10/06/2023 09:32:37 Referral vestibu lar therapy referra l 2024 [facility], [address] [facility] , [place], [address], 02/07/2025 21:23:40 Procedures None recorde d. Surgeries None recorde d. Imaging None recorde d. Medication Orders meclizi ne 25 mg tablet 2024 025 [id number], [address], [place], [place], [id number], 01/17/2025 12:17:44 famotid ine 40 mg tablet 2024 025 [id number], [address], [place], [place], [id number], 01/17/2025 12:17:42 famotid ine 40 mg tablet 2023 024 [id number], [address], [place], [place], [id number], 02/09/2024 09:21:41 Patient TargetsNo targets recorded. Patient Instructions Encounter Date Encounter Id Patient Instructions Last Modified By Organization Details Last Modified Time 09/29/2023 [id number] stool kit /labs today f/u in 4 month nsuthan Not available 09/29/2023 12:42:11 02/07/2024 [id number] stool kit /f/u i n 4 month [facility] Not available 02/07/2024 14:48:00 06/11/2024 [id number] stool kit and f/ u in 4month nsuthan Not available 06/11/2024 15:02:12 01/17/2025 [id number] A healthy lifestyle: care instructions [email or web address] Not available 01/17/2025 12:10:27 pneumococcal polysaccharide vaccine: what you need to know [email or web address] Not available 01/17/2025 12:12:16 Plan of care has been discussed with patient including expected therapeutic benefits and potential side effects of prescribed medication and treatments. Patient verbalizes understanding and is in agreement with the plan of care. Patient was instructed to keep all scheduled appointments and contact the clinic for any additional problems. Health Maintenance: - CRC screening (45-75):Negative colofit 06/12/24 - Osteoporosis screening: Due at 65. - Lipid screening (>45 unless additional risk factors): 09/29/23 - HIV: Declined - HepC: Declined -Eye exam: 2023 -Dental Exam: unknown, provided list - Immunizations: - Influenza: Due. - Prevnar 20: Due at 65. 01/17/25 - Tdap/Td ([id number]): 05/18/22 - Zoster (>60):Due at 60. - COVID-19: 12/19/20, 11/21/20, Declined - AAA screening (65-75): Due at 65. - Prostate ca screening (>50 or >45 if AA, +FH; d/w patient): Due at 50. ordered -Labs ordered this visit: annual labs ordered Not available 01/17/2025 12:13:12 Reason for Referral Vestibular Therapy Referral for Vertigo Referring Physician: Avril Mckay, Family Medicine, Encounter Date: 01/17/2025 Results Created Date Observation Date Name Description Value Unit Range Abnormal Flag Note LastModifiedBy Organization Detail LastModifiedTime 09/29/19 24 09/30/2023 LIPID PANEL cholesterol, total 140 mg/dL 100-19 9 Not Available [facility] Department [address] [place] [address], [address], 09/30/2023 03:09:57 09/29/19 24 09/30/2023 LIPID PANEL triglyceride s 100 mg/dL 0-149 Not Available [facility] Department [address] [place] [address], [address], 09/30/2023 03:09:57 09/29/19 24 09/30/2023 LIPID PANEL HDL cholesterol 45 mg/dL 40-999 Not Available [facility] Department [address] [place] [address], [address], 09/30/2023 03:09:57 09/29/19 24 09/30/2023 LIPID PANEL VLDL cholesterol darci 20 mg/dL 5-40 Not Available [facility] Department [address] [place], [address], 09/30/2023 03:09:57 09/29/19 24 09/30/2023 LIPID PANEL LDL chol calc ([facility]) 88 mg/dL 0-99 Not Available [facility] Department [address] [place], [address], 09/30/2023 03:09:57 09/29/19 24 09/30/2023 COMP. METAB OLIC PANEL (14) glucose 201 mg/dL 70-99 above high normal Not Available [facility] Department [address] [place], [address], 09/30/2023 03:09:58 09/29/19 24 09/30/2023 COMP. METAB OLIC PANEL (14) BUN 11 mg/dL 8-27 Not Available [facility] Department [address] [place], [address], 09/30/2023 03:09:58 09/29/19 24 09/30/2023 COMP. METAB OLIC PANEL (14) creatinine 0.47 mg/dL 0.76-1 .27 below low normal Not Available [facility] Department [address] [place] [address], [address], 09/30/2023 03:09:58 09/29/19 24 09/30/2023 COMP. METAB OLIC PANEL (14) eGFR 119 >=60 Units for eGFR value s are mL/mi n/1.7 3 The eGFR Calcu latio n has not been valid ated for patie nts under the age of 18. If test resul ts are displ ayed for a patie nt under the age of 18, disre doron that value . Not Available [facility] Department [address] [place] [address], [address], 09/30/2023 03:09:58 09/29/19 24 09/30/2023 COMP. METAB OLIC PANEL (14) BUN/creatini ne ratio 23 10-24 Not Available [facility] Department [address] [place] [address], [address], 09/30/2023 03:09:58 09/29/19 24 09/30/2023 COMP. METAB OLIC PANEL (14) sodium 141 mmol/ L 134-14 4 Not Available [facility] Department [address] [place], [address], 09/30/2023 03:09:58 09/29/19 24 09/30/2023 COMP. METAB OLIC PANEL (14) potassium 4.1 mmol/ L 3.5-5. 2 Not Available [facility] Department [address] [place] [address], [address], 09/30/2023 03:09:58 02/01/20 24 09/30/2023 COMP. METAB OLIC PANEL (14) chloride 100 mmol/ L 96-106 Not Available [facility] Department [address] [place], [address], 09/30/2023 03:09:58 09/29/19 24 09/30/2023 COMP. METAB OLIC PANEL (14) carbon dioxide, total 25 mmol/ L 20-29 Not Available [facility] Department [address] [place], [address], 09/30/2023 03:09:58 09/29/19 24 09/30/2023 COMP. METAB OLIC PANEL (14) calcium 10.1 mg/dL 8.6-10 .2 Not Available [facility] Department [address] [place], [address], 09/30/2023 03:09:58 09/29/19 24 09/30/2023 COMP. METAB OLIC PANEL (14) protein, total 7.7 g/dL 6.0-8. 5 Not Available [facility] Department [address] [place], [address], 09/30/2023 03:09:58 09/29/19 24 09/30/2023 COMP. METAB OLIC PANEL (14) albumin 4.4 g/dL 3.8-4. 9 Not Available [facility] Department [address] [place], [address], 09/30/2023 03:09:58 09/29/19 24 09/30/2023 COMP. METAB OLIC PANEL (14) globulin, total 3.3 g/dL 1.5-4. 5 Not Available [facility] Department [address] [place], [address], 09/30/2023 03:09:58 09/29/19 24 09/30/2023 COMP. METAB OLIC PANEL (14) A/G ratio 1.3 1.2-2. 2 Not Available [facility] Department [address] [place], [address], 09/30/2023 03:09:58 09/29/19 24 09/30/2023 COMP. METAB OLIC PANEL (14) bilirubin, total 0.3 mg/dL 0.0-1. 2 Not Available [facility] Department [address] [place], [address], 09/30/2023 03:09:58 09/29/19 24 09/30/2023 COMP. METAB OLIC PANEL (14) alkaline phosphatase 88 IU/L 44-121 Not Available [facility] Department [address] [place] [address], [address], 09/30/2023 03:09:58 09/29/19 24 09/30/2023 COMP. METAB OLIC PANEL (14) AST (SGOT) 17 IU/L 0-40 Not Available [facility] Department [address] [place] [address], [address], 09/30/2023 03:09:58 09/29/19 24 09/30/2023 COMP. METAB OLIC PANEL (14) ALT (SGPT) 18 IU/L 0-44 Not Available [facility] Department [address] [place] [address], [address], 09/30/2023 03:09:58 09/29/19 24 09/29/2023 CBC WITH DIFFE RENTI AL/PL ATELE T WBC 8.2 x10e3 /uL 3.4-10 .8 Not Available [facility] Department [address] [place], [address], 09/30/2023 03:09:59 09/29/19 24 09/29/2023 CBC WITH DIFFE RENTI AL/PL ATELE T RBC 4.66 x10e6 /uL 4.14-5 .80 Not Available [facility] Department [address] [place] [address], [address], 09/30/2023 03:09:59 09/29/19 24 09/29/2023 CBC WITH DIFFE RENTI AL/PL ATELE T hemoglobin 13.7 g/dL 13.0-1 7.7 Not Available [facility] Department [address] [place], [address], 09/30/2023 03:09:59 09/29/19 24 09/29/2023 CBC WITH DIFFE RENTI AL/PL ATELE T hematocrit 42.3 % 37.5-5 1.0 Not Available [facility] Department [address] [place], [address], 09/30/2023 03:09:59 09/29/19 24 09/29/2023 CBC WITH DIFFE RENTI AL/PL ATELE T MCV 91 fL 79-97 Not Available [facility] Department [address] [place], [address], 09/30/2023 03:09:59 09/29/19 24 09/29/2023 CBC WITH DIFFE RENTI AL/PL ATELE T MCH 29.4 pg 26.6-3 3.0 Not Available [facility] Department [address] [place], [address], 09/30/2023 03:09:59 09/29/19 24 09/29/2023 CBC WITH DIFFE RENTI AL/PL ATELE T MCHC 32.4 g/dL 31.5-3 5.7 Not Available [facility] Department [address] [place], [address], 09/30/2023 03:09:59 09/29/19 24 09/29/2023 CBC WITH DIFFE RENTI AL/PL ATELE T RDW 12.2 % 11.5-1 4.5 Not Available [facility] Department [address] [place], [address], 09/30/2023 03:09:59 09/29/19 24 09/29/2023 CBC WITH DIFFE RENTI AL/PL ATELE T platelets 270 x10e3 /uL 150-45 0 Not Available [facility] Department [address] [place], [address], 09/30/2023 03:09:59 09/29/19 24 09/29/2023 CBC WITH DIFFE RENTI AL/PL ATELE T neutrophils 57 % notest b. Not Available [facility] Department [address] [place], [address], 09/30/2023 03:09:59 09/29/19 24 09/29/2023 CBC WITH DIFFE RENTI AL/PL ATELE T lymphs 33 % notest b. Not Available [facility] Department [address] [place], [address], 09/30/2023 03:09:59 09/29/19 24 09/29/2023 CBC WITH DIFFE RENTI AL/PL ATELE T monocytes 7 % notest b. Not Available [facility] Department [address] [place], [address], 09/30/2023 03:09:59 09/29/19 24 09/29/2023 CBC WITH DIFFE RENTI AL/PL ATELE T eos 2 % notest b. Not Available [facility] Department [address] [place], [address], 09/30/2023 03:09:59 09/29/19 24 09/29/2023 CBC WITH DIFFE RENTI AL/PL ATELE T basos 1 % notest b. Not Available [facility] Department [address] [place], [address], 09/30/2023 03:09:59 09/29/19 24 09/29/2023 CBC WITH DIFFE RENTI AL/PL ATELE T neutrophils (absolute) 4.7 x10e3 /uL 1.4-7. 0 Not Available [facility] Department [address] [place], [address], 09/30/2023 03:09:59 09/29/19 24 09/29/2023 CBC WITH DIFFE RENTI AL/PL ATELE T lymphs (absolute) 2.7 x10e3 /uL 0.7-3. 1 Not Available [facility] Department [address] [place], [address], 09/30/2023 03:09:59 09/29/19 24 09/29/2023 CBC WITH DIFFE RENTI AL/PL ATELE T monocytes(ab solute) 0.6 x10e3 /uL 0.1-0. 9 Not Available [facility] Department [address] [place], [address], 09/30/2023 03:09:59 09/29/19 24 09/29/2023 CBC WITH DIFFE RENTI AL/PL ATELE T eos (absolute) 0.1 x10e3 /uL 0.0-0. 4 Not Available [facility] Department [address] [place], [address], 09/30/2023 03:09:59 09/29/19 24 09/29/2023 CBC WITH DIFFE RENTI AL/PL ATELE T baso (absolute) 0.1 x10e3 /uL 0.0-0. 2 Not Available [facility] Department [address] [place], [address], 09/30/2023 03:09:59 09/29/19 24 09/29/2023 CBC WITH DIFFE RENTI AL/PL ATELE T immature granulocytes 0.2 % notest b. Not Available [facility] Department [address] [place], [address], 09/30/2023 03:09:59 09/29/19 24 09/29/2023 CBC WITH DIFFE RENTI AL/PL ATELE T immature grans (abs) 0.0 x10e3 /uL 0.0-0. 1 Not Available [facility] Department [address] [place], [address], 09/30/2023 03:09:59 09/29/19 24 09/29/2023 CBC WITH DIFFE RENTI AL/PL ATELE T NRBC 0 % 0-0 Not Available [facility] Department [address], [place], [address], 09/30/2023 03:09:59 09/29/19 24 09/30/2023 ALBUM IN/CR EATIN INE RATIO ,URIN E creatinine, urine 173.7 mg/dL notest ab. Not Available [facility] ([facility]) [address] [place], [address], 09/30/2023 09:16:33 09/29/19 24 09/30/2023 ALBUM IN/CR EATIN INE RATIO ,URIN E albumin, urine 400.0 ug/mL notest ab. Not Available [facility] ([facility]) [address] [place], [address], 09/30/2023 09:16:33 09/29/19 24 09/30/2023 ALBUM IN/CR EATIN INE RATIO ,URIN E alb/creat ratio 230 mg/g_ creat 0-29 above high normal [place] l: 0 - 29 Moder ately incre ased: 30 - 300 Sever nichelle incre ased: >300 Not Available [facility] ([facility]) [address] [place], [address], 09/30/2023 09:16:33 09/29/19 24 09/30/2023 TSH TSH 1.180 uIU/m L 0.450- 4.500 Not Available [facility] ([facility]) [address] [place], [address], 09/30/2023 09:16:34 06/12/20 24 06/13/2024 COLOF IT,OC CULT BLOOD ,FECA L,IA occult blood, fecal, ia NEGATI VE negati ve Not Available [facility] ([facility]) [address] [place], [address], 06/13/2024 16:15:32 01/09/2001/08/2025 Hemog lobin A1c/H emogl obin. total in Blood hemoglobin A1C, POC 8 % low: 4%high : 5.6% abnormal Hemog lobin A1C, POC 8.0 (A) 4.0 - 5.6 % Not Available Not Available 01/17/2025 03:38:03 01/09/20 25 01/08/2025 Hemog lobin A1c/H emogl obin. total in Blood interpretati on and review of laboratory results Abnorm al Not Available Not Available 03:38:03 02/01/2001/31/2025 LIPID PANEL cholesterol, total 122 mg/dL 100-19 9 Not Available [facility] Department [address] [place], [address], 02/01/2025 03:07:49 02/01/20 25 01/31/2025 LIPID PANEL triglyceride s 87 mg/dL 0-149 Not Available [facility] Department [address] [place], [address], 02/01/2025 03:07:49 02/01/20 25 01/31/2025 LIPID PANEL HDL cholesterol 38 mg/dL 40-999 below low normal Not Available [facility] Department [address] [place], [address], 02/01/2025 03:07:49 02/01/20 25 01/31/2025 LIPID PANEL VLDL cholesterol darci 17 mg/dL 5-40 Not Available [facility] Department [address] [place], [address], 02/01/2025 03:07:49 02/01/20 25 01/31/2025 LIPID PANEL LDL chol calc ([facility]) 77 mg/dL 0-99 Not Available [facility] Department [address] [place], [address], 02/01/2025 03:07:49 02/01/20 25 01/31/2025 COMP. METAB OLIC PANEL (14) glucose 122 mg/dL 70-99 above high normal Not Available [facility] Department [address] [place], [address], 02/01/2025 03:07:50 02/01/20 25 01/31/2025 COMP. METAB OLIC PANEL (14) BUN 22 mg/dL 8-27 Not Available [facility] Department [address] [place], [address], 02/01/2025 03:07:50 02/01/20 25 01/31/2025 COMP. METAB OLIC PANEL (14) creatinine 0.53 mg/dL 0.76-1 .27 below low normal Not Available [facility] Department [address] [place] [address], [address], 02/01/2025 03:07:50 02/01/20 25 01/31/2025 COMP. METAB OLIC PANEL (14) eGFR 114 >=60 Units for eGFR value s are mL/mi n/1.7 3 The eGFR Calcu latio n has not been valid ated for patie nts under the age of 18. If test resul ts are displ ayed for a patie nt under the age of 18, disre doron that value . Not Available [facility] Department [address] [place] [address], [address], 02/01/2025 03:07:50 02/01/20 25 01/31/2025 COMP. METAB OLIC PANEL (14) BUN/creatini ne ratio 41 10-24 above high normal Not Available [facility] Department [address] [place], [address], 02/01/2025 03:07:50 02/01/20 25 01/31/2025 COMP. METAB OLIC PANEL (14) sodium 140 mmol/ L 134-14 4 Not Available [facility] Department [address] [place], [address], 02/01/2025 03:07:50 02/01/20 25 01/31/2025 COMP. METAB OLIC PANEL (14) potassium 4.4 mmol/ L 3.5-5. 2 Not Available [facility] Department [address] [place], [address], 02/01/2025 03:07:50 02/01/20 25 01/31/2025 COMP. METAB OLIC PANEL (14) chloride 104 mmol/ L 96-106 Not Available [facility] Department [address] [place], [address], 02/01/2025 03:07:50 02/01/20 25 01/31/2025 COMP. METAB OLIC PANEL (14) carbon dioxide, total 23 mmol/ L 20-29 Not Available [facility] Department [address] [place], [address], 02/01/2025 03:07:50 02/01/20 25 01/31/2025 COMP. METAB OLIC PANEL (14) calcium 10.3 mg/dL 8.6-10 .2 above high normal Not Available [facility] Department [address] [place], [address], 02/01/2025 03:07:50 02/01/20 25 01/31/2025 COMP. METAB OLIC PANEL (14) protein, total 7.0 g/dL 6.0-8. 5 Not Available [facility] Department [address] [place], [address], 02/01/2025 03:07:50 02/01/20 25 01/31/2025 COMP. METAB OLIC PANEL (14) albumin 4.2 g/dL 3.9-4. 9 Not Available [facility] Department [address] [place], [address], 02/01/2025 03:07:50 02/01/20 25 01/31/2025 COMP. METAB OLIC PANEL (14) globulin, total 2.8 g/dL 1.5-4. 5 Not Available [facility] Department [address] [place], [address], 02/01/2025 03:07:50 02/01/20 25 01/31/2025 COMP. METAB OLIC PANEL (14) A/G ratio 2.0 1.2-2. 2 Not Available [facility] Department [address] [place], [address], 02/01/2025 03:07:50 02/01/20 25 01/31/2025 COMP. METAB OLIC PANEL (14) bilirubin, total 0.4 mg/dL 0.0-1. 2 Not Available [facility] Department [address] [place], [address], 02/01/2025 03:07:50 02/01/20 25 01/31/2025 COMP. METAB OLIC PANEL (14) alkaline phosphatase 89 IU/L 44-121 Not Available [facility] Department [address] [place], [address], 02/01/2025 03:07:50 02/01/20 25 01/31/2025 COMP. METAB OLIC PANEL (14) AST (SGOT) 19 U/L 0-40 Not Available [facility] Department [address] [place], [address], 02/01/2025 03:07:50 02/01/20 25 01/31/2025 COMP. METAB OLIC PANEL (14) ALT (SGPT) 23 IU/L 0-44 Not Available [facility] Department [address] [place], [address], 02/01/2025 03:07:50 02/01/20 25 01/31/2025 CBC WITH DIFFE RENTI AL/PL ATELE T WBC 8.3 x10e3 /uL 3.4-10 .8 Not Available [facility] Department [address] [place], [address], 02/01/2025 03:07:51 02/01/2001/31/2025 CBC WITH DIFFE RENTI AL/PL ATELE T RBC 4.52 x10e6 /uL 4.14-5 .80 Not Available [facility] Department [address] [place], [address], 02/01/2025 03:07:51 02/01/2001/31/2025 CBC WITH DIFFE RENTI AL/PL ATELE T hemoglobin 13.8 g/dL 13.0-1 7.7 Not Available [facility] Department [address] [place], [address], 02/01/2025 03:07:51 02/01/2001/31/2025 CBC WITH DIFFE RENTI AL/PL ATELE T hematocrit 42.5 % 37.5-5 1.0 Not Available [facility] Department [address] [place], [address], 02/01/2025 03:07:51 02/01/2001/31/2025 CBC WITH DIFFE RENTI AL/PL ATELE T MCV 94 fL 79-97 Not Available [facility] Department [address] [place], [address], 02/01/2025 03:07:51 02/01/2001/31/2025 CBC WITH DIFFE RENTI AL/PL ATELE T MCH 30.5 pg 26.6-3 3.0 Not Available [facility] Department [address] [place], [address], 02/01/2025 03:07:51 02/01/2001/31/2025 CBC WITH DIFFE RENTI AL/PL ATELE T MCHC 32.5 g/dL 31.5-3 5.7 Not Available [facility] Department [address] [place], [address], 02/01/2025 03:07:51 02/01/2001/31/2025 CBC WITH DIFFE RENTI AL/PL ATELE T RDW 12.5 % 11.5-1 4.5 Not Available [facility] Department [address] [place], [address], 02/01/2025 03:07:51 02/01/20 25 01/31/2025 CBC WITH DIFFE RENTI AL/PL ATELE T platelets 260 x10e3 /uL 150-45 0 Not Available [facility] Department [address] [place], [address], 02/01/2025 03:07:51 02/01/20 25 01/31/2025 CBC WITH DIFFE RENTI AL/PL ATELE T neutrophils 55 % notest b. Not Available [facility] Department [address] [place], [address], 02/01/2025 03:07:51 02/01/2001/31/2025 CBC WITH DIFFE RENTI AL/PL ATELE T lymphs 35 % notest b. Not Available [facility] Department [address] [place], [address], 02/01/2025 03:07:51 02/01/2001/31/2025 CBC WITH DIFFE RENTI AL/PL ATELE T monocytes 8 % notest b. Not Available [facility] Department [address] [place], [address], 02/01/2025 03:07:51 02/01/2001/31/2025 CBC WITH DIFFE RENTI AL/PL ATELE T eos 1 % notest b. Not Available [facility] Department [address] [place], [address], 02/01/2025 03:07:51 02/01/20 25 01/31/2025 CBC WITH DIFFE RENTI AL/PL ATELE T basos 1 % notest b. Not Available [facility] Department [address] [place], [address], 02/01/2025 03:07:51 02/01/2001/31/2025 CBC WITH DIFFE RENTI AL/PL ATELE T neutrophils (absolute) 4.6 x10e3 /uL 1.4-7. 0 Not Available [facility] Department [address] [place], [address], 02/01/2025 03:07:51 02/01/2001/31/2025 CBC WITH DIFFE RENTI AL/PL ATELE T lymphs (absolute) 2.9 x10e3 /uL 0.7-3. 1 Not Available [facility] Department [address] [place], [address], 02/01/2025 03:07:51 02/01/2001/31/2025 CBC WITH DIFFE RENTI AL/PL ATELE T monocytes(ab solute) 0.6 x10e3 /uL 0.1-0. 9 Not Available [facility] Department [address] [place], [address], 02/01/2025 03:07:51 02/01/2001/31/2025 CBC WITH DIFFE RENTI AL/PL ATELE T eos (absolute) 0.1 x10e3 /uL 0.0-0. 4 Not Available [facility] Department [address] [place], [address], 02/01/2025 03:07:51 02/01/2001/31/2025 CBC WITH DIFFE RENTI AL/PL ATELE T baso (absolute) 0.1 x10e3 /uL 0.0-0. 2 Not Available [facility] Department [address] [place], [address], 02/01/2025 03:07:51 02/01/2001/31/2025 CBC WITH DIFFE RENTI AL/PL ATELE T immature granulocytes 0.2 % notest b. Not Available [facility] Department [address] [place], [address], 02/01/2025 03:07:51 02/01/20 25 01/31/2025 CBC WITH DIFFE RENTI AL/PL ATELE T immature grans (abs) 0.0 x10e3 /uL 0.0-0. 1 Not Available [facility] Department [address] [place], [address], 02/01/2025 03:07:51 02/01/20 25 01/31/2025 CBC WITH DIFFE RENTI AL/PL ATELE T NRBC 0 % 0-0 Not Available [facility] Department [address] [facility], [place], [address], 02/01/2025 03:07:51 02/01/20 25 02/01/2025 ALBUM IN/CR EAT RATIO , RANDO M UR creatinine, urine 205.9 mg/dL notest ab. Not Available [facility] ([facility]) [address] [place], [address], 02/01/2025 10:37:06 02/01/20 25 02/01/2025 ALBUM IN/CR EAT RATIO , RANDO M UR albumin, urine 207.2 ug/mL notest ab. Not Available [facility] ([facility]) [address] [place], [address], 02/01/2025 10:37:06 02/01/20 25 02/01/2025 ALBUM IN/CR EAT RATIO , RANDO M UR alb/creat ratio 101 mg/g_ creat 0-29 above high normal [place] l: 0 - 29 Moder ately incre ased: 30 - 300 Sever nichelle incre ased: >300 Not Available [facility] ([facility]) [address] [place], [address], 02/01/2025 10:37:06 02/01/20 25 02/01/2025 TSH+F REE T4 TSH 1.500 uIU/m L 0.450- 4.500 Not Available [facility] ([facility]) [address] [place], [address], 02/01/2025 10:37:07 02/01/20 25 02/01/2025 TSH+F REE T4 T4,free(dire ct) 1.31 NG/dL 0.82-1 .77 Not Available [facility] ([facility]) [address] [facility], [place], [address], 02/01/2025 10:37:07 02/01/20 25 02/01/2025 PROST ATE-S PECIF IC AG prostate specific Ag 1.2 NG/mL 0.0-4. 0 Eric ECLIA metho dolog y. Accor ding to the Ameri can [employer]rolo gical Assoc iatio n, Serum PSA shoul d decre ase and remai n at undet ectab le level s after radic al prost atect thu. The AUA defin es bioch emica l recur rence as an initi al PSA value 0.2 ng/mL or great er follo wed by a subse quent confi rmato ry PSA value 0.2 ng/mL or great er. Value s obtai radha with diffe rent assay metho ds or kits canno t be used inter winters eably . Resul ts canno t be inter prete d as absol eagle evide nce of the prese nce or absen ce of claudia crowley se. Not Available [facility] ([facility]) [address] [facility], [place], [address], 02/01/2025 10:37:08 10/23/19 24 10/22/2023 XR, chest , 2 view No observ ation record ed. [facility] [address], [place], [address], 10/24/2023 09:45:25 Result Notes None recorded. Problems Name Problem SNOMED Code Status Onset Date Resolution Date Notes Provider Name and Address Organization Details Recorded Time [facility] hyperten yenny 53216485 Active Not Available [facility] 2 12:01:39 Hyperlip idemia 87400545 Active Not Available [facility] 2 12:01:39 Uncontro lled type 2 diabetes mellitus 914183889 Completed 08/04/2016 Removal Reason: love monroe Corinne Bajwa PA-C Attn: Accounting ,[address] [facility], [place], [address] , [facility] 6 19:31:44 Hypomagn esemia 240956913 Completed 201707/17/2018 Corinne Bajwa PA-C Attn: Accounting ,[address] [facility], [place], [address] , [facility] - [facility] 8 16:52:56 Injury of neck 08276697 Active 2018 stiff nek Not Available [facility] 2 12:01:39 Microalb uminuric diabetic nephropa thy 390459766 Active 2021 Not Available [facility] 2 12:01:39 Type 2 diabetes mellitus 90890317 Active 2023 sees endo Ravi Rosas MD Attn: Accounting ,[address] [facility], [place], [address] , [facility] 4 14:40:42 Problem Notes None recorded. Procedures Surgical History Date Name Laterality Status Provider Name and Address Organization Details Recorded Time 1 Unlisted px foot/toes completed Nena Garay [facility] 08/05/2016 11:06:03 Imaging Results None recorded. Procedure Notes None recorded. Medical Equipment None Reported. Allergies Allergen ID Allergen Name Allergen Category Reaction Reaction Severity Criticality Documentation Date Start Date Code Code System Note Provider Name and Address Organization Details Recorded Time 490268 Steglatro medicatio n Not available Not available Not available 11/27/2019 RxNorm yeast Ana Mcmullen RN null, [facility] 0 11:51:12 Medications Name Sig Start Date Stop Date Status Note LastModified by Organization Details LastModified Time metformin tab 1000mgmet formin hcl active Not Available Not Available Not Available aspirin 81 mg chew 1 tab every day active Not Available Not Available No t Available ibuprofen tab 800mgibup rofen active Not Available Not Available Not Available lisinopri l 20 mg tabs active Not Available Not Available Not Available glipizide er 10 mg tb24 active Not Available Not Available Not Available aspirin chw 81mgaspir in active Not Available Not Available Not Available atorvasta tin tab 20mgatorv astatin calcium active Not Available Not Available Not Available ibuprofen 800 mg tabs active Not Available Not Available Not Available atorvasta tin calcium 20 mg tabs active Not Available Not Available Not Available hydroco/a pap tab 5-325mghy drocodone /acetamin ophen active Not Available Not Available Not Available chlorhexi dine gluconate 0.12 % soln active Not Available Not Available Not Available chlorhex glu jas 0.12%chlo rhexidine gluconate active Not Available Not Available No t Available tradjenta tab 5mgtradje nta active Not Available Not Available Not Available metformin hcl 1000 mg tabs active Not Available Not Available Not Available glipizide er tab 5mgglipiz salvatore er active Not Available Not Available Not Available Prescript ion - Prior Authoriza tion Request 03/21 completed Trajdent a Not Available Not Available Not Available child asa chw 81mgchild rens aspirin active Not Available Not Available Not Available glipizide er 5 mg tb24 active Not Available Not Available Not Available hydrocodo ne/acetam inophen 5-325 mgtabs active Not Available Not Available Not Available lisinopri l tab 20mglisin opril active Not Available Not Available Not Available tradjenta 5 mg tabs active Not Available Not Available No t Available insulin syringe U-100 with needle 1/2 mL 29 USE DIRECTED WITH LANTUS active Not Available Not Available No t Available latanopro st 0.005 % eye drops INSTILL 1 DROP IN BOTH EYES EVERY NIGHT AT BEDTIME active Not Available Not Available No t Available atorvasta tin 20 mg tablet TAKE 1 TABLET BY MOUTH EVERY DAY active Not Available Not Available No t Available ibuprofen 800 mg tablet active Not Available Not Available Not Available fluconazo le 150 mg tablet TAKE 1 TABLET BY MOUTH TODAY. REPEAT IN 3 DAYS 01/01 completed Not Available Not Available Not Available hydrocodo ne 5 mg-acetam inophen 325 mg tablet TAKE 1-2 TABLET BY MOUTH EVERY 4 HOURS NEEDED FOR PAIN. DO NOT EXCEED 8 TABLETS DAILY 02/10 completed not taking Not Available Not Available Not Available glipizide ER 10 mg tablet, extended release 24 hr TAKE 2 TABLETS BY MOUTH EVERY DAY WITH FOOD 04/14 completed endo /reduced to once daily. Pt states it has been d/c Not Available Not Available Not Available Niecy Altman 28 gauge 01/01 completed Not Available Not Available Not Available lisinopri l 20 mg tablet TAKE 1 TABLET BY MOUTH DAILY 01/08 completed Not Available Not Available Not Available famotidin e 40 mg tablet TAKE 1 TABLET BY MOUTH EVERY DAY active Not Available Not Available No t Available glipizide ER 5 mg tablet, extended release 24 hr TAKE 1 TABLET BY MOUTH EVERY DAY ALONG WITH 10 MG TABLET active Not Available Not Available No t Available Lantus U-100 Insulin 100 unit/mL subcutane ous solution ADMINIST ER 48 UNITS UNDER THE SKIN EVERY NIGHT active Not Available Not Available No t Available acyclovir 400 mg tablet Take 1 tablet every 8 hours by oral route for 7 days. 07/03 completed Not Available Not Available Not Available lancets TEST BLOOD SUGAR THREE TIMES DAILY 10/06 completed Not Available Not Available Not Available meclizine 25 mg tablet TAKE 1 TABLET(2 5 MG) BY MOUTH THREE TIMES DAILY NEEDED FOR DIZZINES S 2024 active Not Available Not Available Not Avai lable benzonata te 100 mg capsule 04/14 completed Not Available Not Available Not Available cephalexi n 500 mg capsule TAKE 1 CAPSULE BY MOUTH THREE TIMES DAILY FOR 1 WEEK 02/06 completed Not Available Not Available Not Available metformin 1,000 mg tablet TAKE 1 TABLET BY MOUTH TWICE DAILY WITH THE MORNING AND EVENING MEAL active Not Available Not Available No t Available nystatin 100,000 unit/gram topical cream APPLY TOPICALL Y TO THE AFFECTED AREA TWICE DAILY FOR 14 DAYS active Not Available Not Available No t Available lisinopri l 30 mg tablet TAKE 1 TABLET BY MOUTH DAILY active Not Available Not Available No t Available aspirin 81 mg chewable tablet CHEW AND SWALLOW 1 TABLET BY MOUTH DAILY 2024 active Not Available Not Available Not Avai lable alcohol swabs USE TO CHECK BLOOD SUGAR THREE TIMES DAILY 2024 active Not Available Not Available Not Avai lable fluticaso ne propionat e 50 mcg/actua tion nasal spray,noé pension Vidalia 1 spray twice a day by intranas al route. 01/01 completed Not Available Not Available Not Available glipizide 5 mg tablet Take 1 tablet every day by oral route. 12/20 completed Not Available Not Available Not Available insulin lispro (U-100) 100 unit/mL subcutane ous pen ADMINIST ER 14 UNITS UNDER THE SKIN THREE TIMES DAILY BEFORE MEALS active Not Available Not Available No t Available chlorhexi dine gluconate 0.12 % mouthwash active Not Available Not Available No t Available OneTouch Ultra2 Meter kit 01/01 completed Not Available Not Available Not Available Januvia 50 mg tablet TAKE 1 TABLET BY MOUTH EVERY DAY 07/03 completed not taking switched to Trajenta Not Available Not Available Not Available Lantus Solostar U-100 Insulin 100 unit/mL (3 mL) subcutane ous pen ADMINIST ER 20 UNITS UNDER THE SKIN DAILY 10/06 completed Not Available Not Available Not Available Tradjenta 5 mg tablet TAKE 1 TABLET BY MOUTH EVERY DAY 05/18 completed Not Available Not Available Not Available OneTouch Verio test strips USE 1 TEST STRIP TO TEST BLOOD SUGAR FOUR TIMES DAILY active Not Available Not Available No t Available TRUEplus Insulin 0.5 mL 31 gauge x 5/16 syringe USE WITH LANTUS DIRECTED active Not Available Not Available No t Available TRUEplus Insulin 0.5 mL 29 gauge x 1/2 syringe USE DIRECTED WITH LANTUS active Not Available Not Available No t Available TRUEplus Insulin 0.5 mL 30 gauge x 5/16 syringe 01/08 completed Not Available Not Available Not Available Invokana 100 mg tablet TAKE 1 TABLET BY MOUTH EVERY DAY 06/11 completed not taking Not Available Not Available Not Available Trulicity 1.5 mg/0.5 mL subcutane ous pen injector INJECT 1.5 MG SUBCUTAN EOUS ONE DAY A WEEK active Not Available Not Available No t Available Trulicity 0.75 mg/0.5 mL subcutane ous pen injector ADMINIST ER 0.75 MG UNDER THE SKIN EVERY 7 DAYS FOR 4 DOSES 06/11 completed Not Available Not Available Not Available Afluria 7396-5124 (PF) 45 mcg(15 mcg x 3)/0.5 mL intramusc ular syringe 08/05 completed Not Available Not Available Not Available TRUEplus Pen Needle 31 gauge x 5/16 USE ONCE TO FOUR TIMES DAILY DIRECTED 02/06 completed Not Available Not Available Not Available TRUEplus Pen Needle 31 gauge x 3/16 USE 3 NEEDLES DAILY WITH HUMALOG INSULIN PEN active Not Available Not Available No t Available TRUEplus Pen Needle 32 gauge x 5/32 USE TO INJECT UP TO FOUR TIMES DAILY active Not Available Not Available No t Available Steglatro 5 mg tablet TAKE 1 TABLET BY MOUTH EVERY DAY 12/30 completed Not Available Not Available Not Available OneTouch Ultra Blue Test Strip USE TO TEST BLOOD GLUCOSE DAILY AND NEEDED UP TO 3 TIMES 10/06 completed Not Available Not Available Not Available Dexcom G6 Release Of Information Specialist USE TO MONITOR BLOOD SUGAR CONTINOU SLY active Not Available Not Available No t Available Dexcom G6 Transmitt er device USE DIRECTED CONTINUO USLY AND CHANGE TRANSMIT TER EVERY 90 DAYS active Not Available Not Available No t Available Afluria Quad (PF) 60 mcg (15 mcg x 4)/0.5 mL IM syringe 10/11 completed Not Available Not Available Not Available OneTouch Ultra2 Meter USE DIRECTED 10/06 completed Not Available Not Available Not Available OneTouch Delica Plus Lancet 33 gauge USE TO TEST TID 10/06 completed Not Available Not Available Not Available OneTouch Delica Plus Lancet 30 gauge USE THREE TIMES DAILY 10/06 completed Not Available Not Available Not Available Flucelvax Quad (PF) 60 mcg (15 mcg x 4)/0.5 mL IM syringe 07/03 completed Not Available Not Available Not Available Fluzone Quad (PF) 60 mcg (15 mcg x 4)/0.5 mL IM syringe ADM 0.5ML IM UTD 08/01 completed Not Available Not Available Not Available Trulicity 3 mg/0.5 mL subcutane ous pen injector ADMINIST ER 3 MG UNDER THE SKIN EVERY 7 DAYS active Not Available Not Available No t Available Paxlovid 300 mg (150 mg x 2)-100 mg tablets in a dose pack TK 2 NIRMATRE LVIR TS AND 1 RITONAVI R T TOGETHER PO BID FOR 5 DAYS BID FOR 5 DAYS 04/14 completed Not Available Not Available Not Available Dexcom G7 Sensor device active Not Available Not Available Not Available Vitals Date Recorded Body height Body temperature Provider N racheal and Address Organization Details Last Updated DateTime 09/13/2023 172.72 cm 97.2 [degF] Lorna Toney MA [facility] 09/13/2023 15:18:36 Date Recorded Body height Body mass index (BMI) Body weight Heart rate Respiratory rate Body temperature Oxygen saturation Oxygen saturation in Arterial blood by Pulse oximetry Systolic And Diastolic Provider Name and Address Organization Details Last Updated DateTime 4 172.72 cm 27.8 kg/m2 90454.3 3 g 89 /min 14 /min 97.5 [degF] 96 % 96 % 133/85 mm[Hg] Lorna Toney MA [facility] 4 12:26:00 Date Recorded Body height Body mass index (BMI) Body weight Oxygen saturation Oxygen saturation in Arterial blood by Pulse oximetry Heart rate Respiratory rate Body temperature Systolic And Diastolic Provider Name and Address Organization Details Last Updated DateTime 5 172.72 cm 28.1 kg/m2 18121.2 3 g 98 % 98 % 93 /min 16 /min 97.3 [degF] 119/78 mm[Hg] Lorna Toney MA [facility] 5 11:42:45 Date Recorded Body height Body mass index (BMI) Body weight Heart rate Body temperature Oxygen saturation Oxygen saturation in Arterial blood by Pulse oximetry Systolic And Diastolic Provider Name and Address Organization Details Last Updated DateTime 4 172.72 cm 26.9 kg/m2 08696.7 7 g 72 /min 97.8 [degF] 98 % 98 % 104/65 mm[Hg] Haley Lovelace MA [facility] 4 14:22:23 Date Recorded Body height Body mass index (BMI) Body weight Heart rate Respiratory rate Body temperature Oxygen saturation Oxygen saturation in Arterial blood by Pulse oximetry Systolic And Diastolic Provider Name and Address Organization Details Last Updated DateTime 4 172.72 cm 28.4 kg/m2 02761.0 5 g 77 /min 14 /min 97.3 [degF] 97 % 97 % 119/77 mm[Hg] [facility] 4 14:53:22 Social History Question Answer Notes LastModified by Organizat ion Details LastModified Time Tobacco Smoking Status Never Smoker Shasta ZOIE [place], [place] - [facility] 12/18/2014 17:14:20 Do You Have An Advance Directive? No Information not available 02/10/2021 Are You Blind Or Do You Have Difficulty Seeing? No Information not available 11/07/2020 What Is Your Level Of Caffeine Consumption? Occasional Tea And Soda Information not available 04/14/2023 How Much Tobacco Do You Chew? None Information not available 12/18/2014 In The 14 Days Before Symptom Onset, Have You Had Close Contact With A Laboratory-confi rmed COVID-19 While That Case Was Ill? No Information not available 01/02/2020 In The 14 Days Before Symptom Onset, Have You Had Close Contact With A Person Who Is Under Investigation For COVID-19 While That Person Was Ill? No Information not available 01/02/2020 Have You Been To An Area Known To Be High Risk For COVID-19? No Information not available 01/02/2020 Are You Deaf Or Do You Have Serious Difficulty Hearing? No [email or web address] Information not available 11/07/2020 What Type Of Diet Are You Following? REGULAR Information not available 08/05/2016 Which Illicit Or Recreational Drugs Have You Used? Denies Information not available 12/18/2014 Education Less Than 8th Grade [employer]inder[employer] Information not available 01/17/2025 What Is The Highest Grade Or Level Of School You Have Completed Or The Highest Degree You Have Received? [id number] Information not available 02/10/2021 Are There Any Guns Present In Your Home? No Information not available 07/03/2019 Hard Of Hearing Or Deaf In One Or Both Ears? 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 01/17/2025 Information not available 01/17/2025 How Many Children Do You Have? 3 Information not available 01/17/2025 What Is Your Relationship Status? [email or web address] Information not available 11/07/2020 Do You Use Your Seat Belt Or Car Seat Routinely? Yes [email or web address] Information not available 11/07/2020 Seat Belts Used Routinely Yes Information not available 07/03/2019 Smoke Alarm In Home Yes Information not available 07/03/2019 Do You Have Smoke And Carbon Monoxide Detectors In Your Home? Yes [email or web address] Information not available 11/07/2020 How Much Tobacco Do You Smoke? No Information not available 07/03/2019 General Stress Level Low Information not available 08/05/2016 Do You Use Sunscreen Routinely? No Information not available 07/03/2019 Has Tobacco Cessation Counseling Been Provided? No Information not available 09/29/2023 Sex: Male Functional Status Question Answer Note LastModified by Organizat ion Details LastModified Time Do you use any illicit or recreational drugs? No [email or web address] Information not available 11/07/2020 Do you or have you ever used any other forms of tobacco or nicotine? No [email or web address] Information not available 11/07/2020 What is your level of alcohol consumption? None quit 1997- drank since age 10 Information not available 01/17/2025 Do you or have you ever used smokeless tobacco? Never used smokeless tobacco Information not available 07/03/2019 Are you currently employed? Yes [email or web address] Information not available 11/07/2020 Are you able to care for yourself? 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 [id number] [email or web address] Information not available 11/07/2020 Family History Relationship Description Onset Age of this Age Resolved Age Notes LastModified by Organization Details LastModified Time Sister Diabetes mellitus Not available 2014 17:03:43 Medical History Condition Response Coronary Artery Disease N Other N High Blood Pressure Y Atrial Fibrillation N Kidney or Bladder Problems N Thyroid Problems N Depression N COPD N Blood Clots N GI Problems N Skin Problems N Anemia N Heart Attack (ID) N Anxiety Disorder N Diabetes Y Muscle, Joint, or Bone Problems N Seizures/Epilepsy N Acid Reflux (GERD) N Cancer N Stroke N Asthma N Allergies N High Cholesterol N Hepatitis N Headaches N Heart Failure N Osteoporosis N Immunizations Vaccine Type Date Status Note Provider Nam e and Address Organization Details Recorded Time Influenza, split virus, quadrivalent, preservative 6 completed Not Available [facility] 09/15/2019 02:47:51 Influenza, split virus, quadrivalent, preservative 8 completed Not Available [facility] 07/26/2023 16:22:03 Influenza, split virus, quadrivalent, preservative 9 completed Not Available [facility] 07/26/2023 16:22:03 Influenza, split virus, quadrivalent, preservative 0 completed RUSSELL ASTORGA Attn: Accounting[address] [place], [address], [facility] 01/17/2025 12:11:24 Tdap 0 completed Not Available [facility] 07/26/2023 16:22:03 Influenza, split virus, trivalent, preservative 4 completed Not Available [facility] 07/26/2023 16:22:03 pneumococcal polysaccharide PPV23 6 completed Not Available [facility] 09/15/2019 02:33:00 pneumococcal, unspecified formulation 6 completed Not Available [facility] 01/17/2025 11:01:43 Tdap 9 completed Not Available [facility] 01/17/2025 11:01:43 Influenza, split virus, trivalent, PF 6 completed Not Available [facility] 01/17/2025 11:01:43 Influenza, MDCK, quadrivalent, PF 2 completed Not Available [facility] 01/17/2025 11:01:43 Influenza, split virus, quadrivalent, PF 0 completed RUSSELL ASTORGA Attn: Accounting[address] [place], [address], [place] [facility] 01/17/2025 12:11:24 Influenza, split virus, quadrivalent, preservative 7 completed Not Available [facility] 09/15/2019 02:43:11 COVID-19, mRNA, LNP-S, PF, 100 mcg/0.5mL dose or 50 mcg/0.25mL dose 1 completed LENNOX [place], [place] - [facility] 11/21/2020 15:52:03 COVID-19, mRNA, LNP-S, PF, 100 mcg/0.5mL dose or 50 mcg/0.25mL dose 1 completed LENNOX [place], [place] - [facility] 12/19/2020 15:34:48 Influenza, split virus, quadrivalent, preservative 1 completed [place], [place] [facility] 06/26/2021 15:22:52 Tdap 2 completed Ravi Rosas MD Attn: Accounting[address] [place], [address], [place] [facility] 05/18/2022 15:51:07 Influenza, split virus, quadrivalent, preservative 6 completed Not Available [facility] 07/26/2023 16:22:02 influenza, unspecified formulation 6 completed Not Available [facility] 07/26/2023 16:22:03 Influenza, split virus, quadrivalent, preservative 4 completed L[place]X [place], [place] [facility] 09/13/2023 15:23:55 Influenza, split virus, trivalent, preservative 4 completed [place] [facility] 06/11/2024 16:16:03 Pneumococcal conjugate PCV20, polysaccharide [id number] conjugate, adjuvant, PF 5 completed Lorna ToneyLENNOX, [facility] 01/17/2025 18:04:59 Past Encounters Encounter ID Performer Location Encounter Start Date Encounter Closed Date Diagnosis/Indication Diagnosis SNOMED-CT Code Diagnosis ICD10 Code Diagnosis Note [id number] MD Link Crandall (Adult Med) [address] [place] [address] 12/18/2014 16:27:27 12/18/2014 17:58:11 Uncontrolled type 2 diabetes mellitus [id number] HBA1C increased from 8.5 10.4. Diabetic diet advised.Ad vised regular exerise and weight reduction. Increase the Glipizide er to 10 mg po daily. Continue Metformin and Tradjenta. Repeat HBA1C in 3 months.If no improvemen t,will start Insulin. Essential hypertension 01076316 Blood pressure wel controlled . Continue same medication s. Hyperlipidemia 38814174 well controlled . Continue same medication s. Screening for malignant neoplasm of colon 083941571 Screening for malignant neoplasm of prostate [id number] [facility] [address] [place] [address] 03/19/2015 16:44:47 03/19/2015 17:35:42 Uncontrolled type 2 diabetes mellitus 561406355 Last HBA1C 10.4.Patie nt forgot to do the labs. Diabetic diet advised.Ad vised regular exerise and weight reduction. Glipizide dose was increased at the last visit. Continue Glipizide er to 10 mg po daily, Metformin and Tradjenta. Advise patient to do the labs jess. Essential hypertension 20373421 Blood pressure wel controlled . Continue same medication s. Hyperlipidemia 08719794 well controlled . Continue same medication s. [id number] MD Link Crandall (Adult Med) [address] [facility] [address] 09/17/2015 13:58:20 09/19/2015 16:03:39 Uncontrolled type 2 diabetes mellitus 787352056 E11.65 Last HBA1C 8.8 .Patient was no showed for the last appointent . Diabetic diet advised.Ad vised regular exerise and weight reduction. Glipizide er dose was increased to 15 mg but he onle takes Glipizide er 5 mg po daily. Continue Glipizide er 5 mg mg po daily, Metformin and Tradjenta. Advise patient to do the labs. Essential hypertension 31607066 I10 Blood pressure wel controlled . Continue same medication s. Hyperlipidemia 27709882 E78.2 well controlled . Continue same medication s. Obesity 421384920 E66.09 Advised 1500 calories low fat,low cholestero l,low carb diet,regul ar exercise and weight reduction. Screening for malignant neoplasm of colon 502043752 Z12.11 [id number] JAS Foote-CHRIS Maza (Adult Med) [address] [place] [address] 10/23/2015 17:14:04 10/23/2015 17:38:47 Active or passive immunization 394380754 Z23 [id number] DARRYL De Leon (Adult Med) [address] [place] [address] 08/05/2016 10:38:21 08/05/2016 14:04:02 Type 2 diabetes mellitus without complication 621324408 E11.9 continue current medication s, can check blood sugars 3 times a week fasting, discussed goal of 120 or less. Essential hypertension [id number] I10 uncontroll ed today, out of meds for past month. He is trying to watch his salt intake, but prepares food at home and he will eat fast food a few times a week, when it is hot he drinks gatorade. d/w pt & his that sodium in teaspoon is over 2000g and that is almost the full daily recommenda tion. Avoid salting foods, reduce fast foods like [employer] and drink the G2 which has less sugar than gatorade. Hyperlipidemia 24803673 E78.5 discussed low fat diet, less fast food Body mass index 30+ - obesity 934347374 Z68.30 stay active, diet discussed above Administra tion of pneumococcal vaccine 63458158 Z23 Screening for malignant neoplasm of prostate 534443887 Z12.5 Screening for malignant neoplasm of colon 841434133 Z12.11 never got colonoscop y ordered in August, trouble finding provider who takes his insurance. [id number] DARRYL De Leon (Adult Med) [address] [place] [address] 09/09/2016 09:59:37 09/09/2016 14:35:06 Type 2 diabetes mellitus without complication 121113852 E11.9 cont current medication regimen, dwp goal of fasting glucose 120s. reduce amount of milk as it can have sugars if he is drinking 1-2 glasses a day. Essential hypertension 53205921 I10 controlled now he is back on meds. recommend he call us if he should have problems getting Rx medication s so he doesn't miss doses. Hyperlipidemia 94526619 E78.5 reviewed diet education on saturated fats. encouraged to continue exercising . [id number] DARRYL De Leon (Adult Med) [address] [place] [address] 12/15/2016 16:01:32 12/16/2016 09:17:36 Type 2 diabetes mellitus without complication 195102783 E11.9 Reviewed labs with patient, discussed how to interpret fasting & post-prand ial blood sugars. Discussed portion control and foods that can raise blood sugars. The role of exercise/a ctivity. Also discussed Victoza and answered questions. he would like to try diet & exercise first since he knows what to do now and if it doesn't improve in 3 months he will start injectable . [id number] MD Link Mccray (Adult Med) [address] [place] [address] 05/05/2017 16:21:45 05/09/2017 13:46:45 Type 2 diabetes mellitus without complication 165318650 E11.9 discussed with patient A1c goal of less than 8, he had refused starting lantus insulin at last visit and wanted this summer to work on diet & exercise, he has lost 10 lbs since last visit and reports fasting glucose in 130s at home. Essential hypertension 57753405 I10 controlled , cont lisinopril Hyperlipidemia 28041581 E78.5 controlled on statin Pain in right knee 89370 [id number] 61646 M25.561 likely sprain, present for one week. Ice the knee, use RADHA wrap if needed and take Aleve BID or ibuprofen 400-600mg TID PRN pain. Call if not improving in 2 weeks. Administra tion of influenza vaccine 58275225 Z23 [id number] MD Link Mccray (Adult Med) [address] [place] [address] 09/14/2017 11:33:46 09/15/2017 14:18:20 Type 2 diabetes mellitus without complication 157592903 E11.9 uncontroll ed, A1c in hospital 8.3% which is higher than this past fall when it was 7.6%. encouraged him to schedule eye exam as soon as possible. Essential hypertension 40164028 I10 Recent overnight hospital stay for c/o chest pain. BP higher today, negative cardiac w/u. cont lisinopril , follow heart healthy diet and increase activity. Hypomagnesemia 419588792 E83.42 noted in ER, replaced via IV. no chest pains or palpitatio ns. advised patient to follow healthy diet with leafy greens and fortified cereals. Hyperlipidemia 29557997 E78.5 controlled on statin, lipids checked in hospital and LDL below goal of less than 75 for diabetics. Screening for malignant neoplasm of colon 468452997 Z12.11 patient could not be reached to schedule w/ Dr. Pierre' s office. Will resend referral when patient's work status resumes. [id number] MD Jovana Mccrayhalto (Adult Med) [address] [place] [address] 03/21/2018 11:04:39 03/24/2018 13:09:46 Type 2 diabetes mellitus without complication 047077251 E11.9 uncontroll ed, A1c in hospital 8.3%. Had not returned for labs in december but reports he had it drawn this AM. He denies any hypoglycem ia episodes. Negative monofilame nt test today he reports [place] doesn't cover eye exam at place where he went in [place], will try different location. Hyperlipidemia 17432476 E78.5 controlled on statin, lipids checked in hospital and LDL 54. cont low fat diet, avoid junk food and stay active. He has lost 5lbs since last visit. Essential hypertension 92101916 I10 controlled , cont lisinopril , heart healthy diet and stay active. Chronic neck pain 125624 1772 107 M54.2 given handout of neck/shoul alber exercises to start at home. Screening for malignant neoplasm of colon 845045521 Z12.11 he never scheduled colonoscop y, given stool kit today. Body mass index 25-29 - overweight 746579543 Z68.28 weight down 5 lbs due to job change, too busy to eat junk food and staying active. recommend he cont heart healthy diet and activity for continued weight loss. [id number] MD Link Mccray (Adult Med) [address] [place] [address] 07/17/2018 16:20:17 07/18/2018 14:48:01 Type 2 diabetes mellitus without complication 429081895 E11.9 uncontroll ed, A1c 9.7%. Had not returned for labs in december but reports he had it drawn this AM. He denies any hypoglycem ia episodes. Negative monofilame nt test today he reports [place] doesn't cover eye exam at place where he went in [place], will try different location. Essential hypertension 88876822 I10 controlled , cont lisinopril , heart healthy diet and stay active. Hyperlipidemia 31904178 E78.5 controlled on statin, lipids checked in hospital and LDL 54. cont low fat diet, avoid junk food and stay active. He has lost 5lbs since last visit. 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 [id number] MD Link Mccray (Adult Med) [address] [place] [address] 07/31/2018 16:09:28 08/25/2018 09:58:39 Uncontrolled type 2 diabetes mellitus 666637657 E11.65 uncontroll ed, A1c 10.3%. Discussed starting insulin, Insulin pen teaching done by provider today. short term f/u to review home glucose after starting insulin and to see if oral meds will need to be decreased or stopped. call if any hypoglycem ia episodes. [id number] MD Link Mccray (Adult Med) [address] [place] [address] 10/11/2018 10:37:34 10/12/2018 09:14:01 Type 2 diabetes mellitus without complication 060020210 E11.9 Return next week to recheck A1c. 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 Discussed diet, cont taking oral meds. He is agreeable that if A1c is still above 8% he will start insulin. Insurance may not cover lantus pen, if that is the case he will need to be educated on how to draw up and administer lantus w/ syringe. Penile candidiasis 55317 8000 B37.49 Not sure if this is truly yeast infection, difficult to tell w/ white cream applied this AM. Possible it could be friction injury if has vaginal dryness during intercours e causing abrasion. Advised him to cont using cream, treat w/ one day diflucan, allow at least one week for tissue to heal before engaging in intercours e. should be assessed by her Conciliator to r/o infectious cause. [id number] MD Link Mccray (Adult Med) [address] [place] [address] 10/20/2018 09:14:08 10/23/2018 09:18:49 Type 2 diabetes mellitus without complication 388290667 E11.9 Return next week to recheck A1c. 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 Discussed diet, cont taking oral meds. He is agreeable that if A1c is still above 8% he will start insulin. Insurance may not cover lantus pen, if that is the case he will need to be educated on how to draw up and administer lantus w/ syringe. [id number] MD Link Mccray (Adult Med) [address] [place] [address] 12/20/2018 08:19:18 12/21/2018 08:58:19 Lymphadenopathy 45650763 R59.[address] scan in ER bilateral scattered mild lymphadeno evelyn, largest 1.2cm but report body says right and impression says left. Nodes not palpable on exam. Likely reactive from recent cough, exposure to who had flu & pneumonia. Repeat eval by either CT or ultrasound in 6 mo to monitor for resolution Type 2 montez betes mellitus without complication 009034745 E11.9 Cont to monitor closely, cont oral meds. We will look into insurance approval for basaglar at f/u visit. Cont to limit sweets, carbs; increase activity as weather improves Essential hypertension 45681873 I10 controlled , ER BP was 108/61, cont lisinopril , low salt diet [id number] MD Link Mccray (Adult Med) [address] [place] [address] 02/14/2019 15:04:15 02/15/2019 12:12:11 Type 2 diabetes mellitus without complication 533624514 E11.9 Cont glargine, metformin, januvia, glipizide; no hypoglycem ia. Cont diabetic diet and current meds. Essential hypertension 51587268 I10 controlled , cont lisinopril , low salt diet Aphthous u lcer of mouth 455942798 K12.0 dwp citrus/aci dic foods may be contribute , r/o HSV 1 Hyperlipidemia 68443958 E78.5 controlled on statin, lipids checked in hospital and LDL 54. cont low fat diet, avoid junk food and stay active. He has lost 5lbs since last visit. Allergic rhinitis 332192 04 J30.1 controlled w/ PRN meds Body mass index 25-29 - overweight 448024362 Z68.28 weight down another 5 lbs in last 2 mo, cont diabetic diet, staying active [id number] MD Link Mohan (Adult Med) [address] [place] [address] 07/03/2019 13:58:13 07/04/2019 15:10:44 Essential hypertension 30736533 I10 stable on lisinopril Type 2 montez betes mellitus without complication 014188085 E11.9 pt is on metformin, glipizide 15 mg and tradjentap t had eye exam on 11/14pt has callus Hyperlipidemia 97437990 E78.5 stable on atorvastat in Screening for malignant neoplasm of colon 564043009 Z12.11 pt declined colonoscop y [id number] [facility] [address] [place] [address] 07/18/2019 14:45:00 07/20/2019 09:38:45 Type 2 diabetes mellitus without complication 267417462 E11.9 not well controlled .Discussed about insulin -pt wants to try oral med first .pt is on metformin/ tradjenta .pt to increase glipizide 20 mg daily .Add Invokana .Refer to endo as well .pt had eye exam on 11/14. [id number] [facility] [address] [place] [address] 11/13/2019 09:53:37 11/14/2019 08:59:23 Essential hypertension 87463136 I10 stable on lisinopril Hyperlipidemia 51216997 E78.5 stable on atorvastat in Type 2 montez betes mellitus without complication 528539181 E11.9 Discussed about insulin -pt wants to try oral med first .pt is on metformin/ tradjenta/ glipizide 20 mg daily .pt stopped taking steglatro ( yeast infection) Refered to endo as well .pt had eye exam on 11/14. Penile candidiasis 64935 8000 B37.49 pt to d/c steglatro [id number] [facility] [address] [place] [address] 01/02/2020 08:31:44 01/03/2020 11:14:34 Type 2 diabetes mellitus without complication 862927187 E11.9 pt is taking 20 units at evening .pt is on metformin/ tradjenta/ glipizide 20 mg daily .pt stopped taking steglatro ( yeast infection) Refered to endo as well .pt had eye exam on 11/14.pt to check blood sugars daily and bring home blood sugars with every visit .pt to call in with blood sugars in 2wks [id number] [facility] [address] [place] [address] 03/21/2020 08:14:49 03/25/2020 09:29:11 Essential hypertension 26367884 I10 stable on lisinopril Type 2 montez betes mellitus without complication 963247900 E11.9 pt is taking lantus 20 units at evening .pt is on metformin/ tradjenta/ glipizide 20 mg daily .pt stopped taking steglatro ( yeast infection) Refered to endo as well .pt had eye exam on 11/14.pt to check blood sugars daily and bring home blood sugars with every visit .pt is not checking blood sugars Hyperlipidemia 20308714 E78.5 stable on atorvastat in [id number] [facility] [address] [place] [address] 08/01/2020 08:19:32 08/04/2020 10:18:53 Essential hypertension 66660254 I10 stable on lisinopril Type 2 montez betes mellitus without complication 301572012 E11.9 pt is taking lantus 20 units at evening .pt is on metformin/ tradjenta/ glipizide 20 mg daily .pt stopped taking steglatro ( yeast infection) Refered to endo as well .pt had eye exam on 11/14.pt to check blood sugars daily and bring home blood sugars with every visit . Hyperlipidemia 40632048 E78.5 stable on atorvastat in Screening for malignant neoplasm of colon 516864017 Z12.11 pt declined colonoscop y [id number] [facility] [address] [place] [address] 09/01/2020 08:34:21 09/02/2020 08:16:36 Type 2 diabetes mellitus without complication 280834644 E11.65 not well controlled -home blood sugars are <170 , but his A1c is getting worse.pt is taking lantus 20 units at evening .pt is on metformin/ tradjenta/ glipizide 20 mg daily .pt stopped taking steglatro ( yeast infection) Refered to endo as well .pt had eye exam on 11/14.pt to check blood sugars daily and bring home blood sugars with every visit . [id number] [facility] [address] [facility] [place] [address] 11/07/2020 08:09:00 11/10/2020 08:40:22 Type 2 diabetes mellitus without complication 615594265 E11.65 not well controlled .pt is taking lantus 20 units at evening with meal coverage per endo.pt is on metformin/ tradjenta/ reduced to glipizide 10 mg daily .pt stopped taking steglatro ( yeast infection) pt started seeing endopt had eye exam on 11/14. Essential hypertension 44773921 I10 stable on lisinopril Hyperlipidemia 78914164 E78.5 stable on atorvastat in [id number] MD Deepak Mccray 14 IM [address] [facility] [place] [address] 11/21/2020 15:03:27 11/25/2020 08:27:30 Administration of SARS-CoV-2 antigen vaccine 814237943 Z23 [id number] MD Deepak Mccray 14 IM [address] [facility] [place] [address] 12/19/2020 15:03:21 12/23/2020 07:40:02 Administration of SARS-CoV-2 antigen vaccine 469909351 Z23 [id number] Ravi Rosas MD [facility] (Adult Med) [address] [facility] [place] [address] 02/10/2021 14:05:21 02/13/2021 09:31:55 Essential hypertension 42139529 I10 stable on lisinopril Type 2 montez betes mellitus without complication 015630851 E11.65 not well controlled .pt is taking lantus 20 units at evening with meal coverage per endo.pt is on metformin/ tradjenta/ reduced to glipizide 10 mg daily .pt stopped taking steglatro ( yeast infection) pt started seeing endopt had eye exam on 11/14. Hyperlipidemia 28698250 E78.5 stable on atorvastat in Screening for malignant neoplasm of colon 023910330 Z12.11 pt declined colonoscop y Overweight 850609150 E66 .3 [id number] MD Jovana Mohanhalto (Adult Med) [address] [place] [address] 06/26/2021 15:02:25 06/29/2021 07:06:48 Administration of influenza vaccine 74390216 Z23 [id number] MD Link Mohan (Adult Med) [address] [place] [address] 09/30/2021 08:53:14 10/01/2021 09:19:55 Essential hypertension 14756583 I10 - pt was told his bp was elevated when he went to see endopt is on lisinopril 20mg -taking as prescribed -pt to come in 2 wks to the office Type 2 montez betes mellitus without complication 523427653 E11.65 -improving per ptpt is taking lantus 30 units at evening with meal coverage per endo.pt is on metformin/ tradjenta/ reduced to glipizide 10 mg daily .pt stopped taking steglatro ( yeast infection) pt started seeing endo Hyperlipidemia 64531054 E78.5 stable on atorvastat in [id number] MD Link Mohan (Adult Med) [address] [place] [address] 10/06/2021 11:52:45 10/07/2021 08:51:54 Essential hypertension 25183468 I10 - stablept is on lisinopril 20mg -taking as prescribed Screening for malignant neoplasm of colon 126057043 Z12.11 pt declined colonoscop y Type 2 montez betes mellitus without complication 109309575 E11.65 -improving per ptpt is taking lantus 30 units at evening with meal coverage per endo.pt is on metformin/ tradjenta/ reduced to glipizide 10 mg daily .pt stopped taking steglatro ( yeast infection) pt started seeing endo Hyperlipidemia 31665302 E78.5 stable on atorvastat in [id number] MD Link Mohan (Adult Med) [address] [place] [address] 01/08/2022 08:36:47 01/11/2022 11:55:15 Essential hypertension 39750888 I10 -not well controlled pt to increase lisinopril 30mg since pt has proteinuri a -taking as prescribed Hyperlipidemia 77004527 E78.5 stable on atorvastat in Overweight 009505993 E66 .3 Uncontroll ed type 2 diabetes mellitus 349192895 E11.65 -not well controlled - refer to home health to make sure pt is taking his meds as prescribed and following instructio ns per endopt is taking lantus 30 units at evening with meal coverage per endo.pt is on metformin/ tradjenta/ reduced to glipizide 10 mg daily .pt stopped taking steglatro ( yeast infection) pt started seeing endo Sebaceous cyst of skin 484044480 L72.3 on L/forehead - observe for now -pt to return to clinic if any redness or getting bigger [id number] MD Link Mohan (Adult Med) [address] [place] [address] 05/18/2022 08:57:48 05/19/2022 12:19:58 Essential hypertension 61063599 I10 - well controlled pt to continue lisinopril 30mg since pt has proteinuri a -taking as prescribed Type 2 montez betes mellitus without complication 894224949 E11.65 -improving per pt -last a1c-8.6 a wk agopt is taking lantus 30 units at evening with meal coverage per endo.pt is on metformin/ reduced to glipizide 10 mg dailypt is on trulicity -off of tradjenta .pt stopped taking steglatro ( yeast infection) pt started seeing endo Hyperlipidemia 66510241 E78.5 stable on atorvastat in Administra tion of diphtheria, pertussis, and tetanus vaccine 860478534 Z23 [id number] [facility] [address] [place] [address] 04/14/2023 13:26:56 04/19/2023 13:02:29 Essential hypertension 46142709 I10 - well controlled pt to continue lisinopril 30mg since pt has proteinuri a -taking as prescribed Hyperlipidemia 62741606 E78.5 stable on atorvastat in Type 2 montez betes mellitus without complication 740204301 E11.65 -not well controlled -seeing endopt is taking lantus 40 units at evening with meal coverage per endo.pt is on metformin/ off of glipizidep t is on trulicity -off of tradjenta .pt stopped taking sglt2i( yeast infection) pt started seeing endo 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 - pt is on acei Screening for malignant neoplasm of colon 442168613 Z12.11 pt declined colonoscop y Overweight 281606226 E66 .3 [id number] [facility] [address] [place] [address] 09/13/2023 15:02:30 09/14/2023 09:28:57 Administration of influenza vaccine 61973587 Z23 [id number] [facility] [address] [place] [address] 09/29/2023 11:31:20 10/03/2023 13:13:32 Essential hypertension 44877117 I10 - well controlled pt to continue lisinopril 30mg since pt has proteinuri a -taking as prescribed Hyperlipidemia 77138164 E78.5 stable on atorvastat in Type 2 montez betes mellitus without complication 936498200 E11.65 -slowly improving -seeing endopt is taking lantus 40 units at evening with meal coverage per endo.pt is on metformin/ off of glipizidep t is on trulicity -off of tradjenta .pt stopped taking sglt2i( yeast infection) pt started seeing endo Screening for malignant neoplasm of colon 131498553 Z12.11 pt declined colonoscop y [id number] Ravi Rosas MD [facility] (Adult Med) [address] [place] [address] 02/07/2024 13:51:16 02/09/2024 15:45:19 Essential hypertension 65271301 I10 - well controlled pt to continue lisinopril 30mg since pt has proteinuri a -taking as prescribed Hyperlipidemia 49414288 E78.5 stable on atorvastat in Type 2 montez betes mellitus 19550833 E11.21 -slowly improving -seeing endopt is taking lantus 40 units at evening with meal coverage per endo.pt is on metformin/ off of glipizidep t is on trulicity -off of tradjenta .pt stopped taking sglt2i( yeast infection) pt started seeing endo Screening for malignant neoplasm of colon 042118834 Z12.11 pt declined colonoscop y Gastroesop hageal reflux disease without esophagitis 619184583 K21.9 [id number] [facility] [address] [place] [address] 06/11/2024 14:36:50 06/18/2024 09:13:25 Administration of influenza vaccine 92114106 Z23 Essential hypertension 46615882 I10 - well controlled pt to continue lisinopril 30mg since pt has proteinuri a -taking as prescribed Hyperlipidemia 19037434 E78.5 stable on atorvastat inpt had labs with endo Type 2 montez betes mellitus 97453188 E11.21 -slowly improving -seeing endopt is taking lantus 40 units at evening with meal coverage per endo.pt is on metformin/ off of glipizidep t is on trulicity -off of tradjenta .pt stopped taking sglt2i( yeast infection) pt started seeing endo Screening for malignant neoplasm of colon 353727112 Z12.11 pt declined colonoscop y [id number] [facility] [address] [place] [address] 01/17/2025 11:00:52 01/22/2025 16:13:37 Gastroesophageal reflux disease without esophagitis 636637126 K21.9 -patient reports having chronic GERD symptoms. 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 Informatio nal handout provided. Essential hypertension 91424464 I10 -stable-BP today in clinic: 119/78 mmHg (Goal <130/80)-C ontinue current therapy: Lisinopril 30 mg daily-Tren d renal function-R ecommended DASH diet-Discu ssed importance of regular exercise and/or physical activity inthe control of blood pressure.- Discussed low sodium diet w/ <2 g daily, avoidance of caffeine, appropriat e sleep hygiene and quality with >6 hours of uninterrup shelly sleep.-Pat ient to call the clinic with BP <110/70mmH g or >140/90mmH g Mixed hyperlipidemia 267 414976 E78.2 -controlle d-Continue current therapy: Atorvastat in 20 mg daily-Rech kd lipid panel-Tren d LFTs-Patie nt educated on the importance of diet, exercise and medication in the management of this condition. Long-term current use of drug therapy 093540004 Z79.899 Screening for malignant neoplasm of prostate 580138943 Z12.5 Vaccination needed [id number] 46162 Z23 -Patient agreeable to pneumonia vaccine.-N P discussed potential side effects and benefits of vaccine. Uncontroll ed type 2 diabetes mellitus 501035625 E11.65 -managemen t per endocrinol ogy-Uncont rolled-Las t A1c 8% (01/08/25)- Goal A1c < 7%-Home blood glucose readings:- DM Maintenanc eEye exam: [facility]: Declined, completed by endocrinol ogyMicroal : ordered-De nies hypo/hyper glycemia episodes.- Recheck A1c at f/u-Contin ue current therapy: Insulin lispro sliding scale, Lantus 48 units nightly, metformin 1000 mg b.i.d., Trulicity 3 mg weekly-Rec ommended diabetic diet-Educa shelly to check feet daily. Vertigo [id number] R42 -patient reports he was provided meclizine therapy in the ER previously for vertigo-aida mendozant was not refer for vestibular therapy. Patient agreeable to vestibular therapy referral-c ontinue meclizine 25 mg prn-follow up in 6 months after completing therapy and see if symptoms have resolved. Consider further evaluation if symptoms do not improve-ER precaution s advised Health Concerns Section Related Observation LastModified by Organization Detai ls LastModified Time None Recorded Concern Status LastModified by Organization Details LastModified Time None Recorded Advance Directives Directive N: Payers Insurance Date Sequence Insurance Name Policy Number Policy Arellano Covered Member ID Arellano Member ID Guarantor Name 02/07/2024 1 [place] [facility] Rodrigue Christie [id number] Rodrigue hCristie 01/22/2025 1 [facility] - DOS ON OR AFTER 21 (MEDICAID REPLACEMENT - HMO) Rodrigue Christie [id number] Rodrigue Reevesazar 02/07/2024 1 [facility] (MEDICAID HMO) Rodrigue Christie [id number] Rodrigue V Christie 02/07/2024 1 [place] [facility] Rodrigue Christie [id number] Rodrigue V Christie 02/07/2024 1 [facility] (MEDICAID HMO) Rodrigue Christie [id number] Rodrigue V Christie 01/15/2025 2 *SELF PAY* Fe rmin V Christie 01/15/2025 1 [place] [facility] Rodrigue V Christie [id number] Rodrigue V Christie 10/30/2024 1 [facility] - DOS ON OR AFTER 21 (MEDICAID REPLACEMENT - HMO) Rodrigue Christie [id number] Rodrigue V Christie 02/07/2024 1 [facility] - DOS PRIOR TO 2021 (MEDICAID REPLACEMENT - HMO) Rodrigue Christie [id number] Rodrigue V Christie Notes Date Note Type Note Provider Name and Address Organization Details Recorded Time 09/29/2023 text/html Diabetes F/URepo rted bypatient.Labs:last A1C result: 9.4 (with endo 02/2023) Context:seeing eye doctor regularly; checking feet regularly; not missing doses of medications; no side effects from medications Associated Symptoms:no weight gain; no dizziness; no headaches; no calluses on feet;numbness of feetNotes:pt started seeing endo , reduced glipizide to once daily and taking lantus with short acting insulin for meal coverage and trulicityHypertensio n F/UReported bypatient.Associated Symptoms:no dizziness; no chest pain; no shortness of breath; no palpitations; no edema Lifestyle:regular exercise; limiting/avoiding salt Medications:taking medications as directed; no side effects from medication pt with DM-type 2 , HTN, hyperlipidemia is here for f/u. Ravi Rosas MD Attn: [address] [place], [address], [facility] 09/30/2023 13:42:36 02/07/2024 text/html Diabetes F/URepo rted bypatient.Labs:last A1C result: 9.4 (with endo) Context:seeing eye doctor regularly; checking feet regularly; not missing doses of medications; no side effects from medications Associated Symptoms:no weight gain; no dizziness; no headaches; no calluses on feet;numbness of feetNotes:pt started seeing endo , reduced glipizide to once daily and taking lantus with short acting insulin for meal coverage and trulicityHypertensio n F/UReported bypatient.Associated Symptoms:no dizziness; no chest pain; no shortness of breath; no palpitations; no edema Lifestyle:regular exercise; limiting/avoiding salt Medications:taking medications as directed; no side effects from medication pt with DM-type 2 , HTN, hyperlipidemia is here for f/u. Ravi Rosas MD Attn: [address]ing[address] [place], [address], [facility] 02/09/2024 09:22:25 06/11/2024 text/html Diabetes F/URepo rted bypatient.Labs:last A1C result: 9.4 (with endo) Context:seeing eye doctor regularly; checking feet regularly; not missing doses of medications; no side effects from medications Associated Symptoms:no weight gain; no dizziness; no headaches; no calluses on feet;numbness of feetNotes:pt started seeing endo , reduced glipizide to once daily and taking lantus with short acting insulin for meal coverage and trulicityHypertensio n F/UReported bypatient.Associated Symptoms:no dizziness; no chest pain; no shortness of breath; no palpitations; no edema Lifestyle:regular exercise; limiting/avoiding salt Medications:taking medications as directed; no side effects from medication pt with DM-type 2 , HTN, hyperlipidemia is here for f/u. Ravi Rosas MD Attn: Accounting[address] [place], [address], [facility] 06/11/2024 15:09:34 01/17/2025 text/html Patient presents to the clinic to establish care. Patient was previously established with Dr. Maurer for primary care.Other providers:Daxa Zimmerman RAMP MANAGER with [facility]-Endocrinology -Medical Hx/Surgical Hx: Hypertension, hyperlipidemia, type 2 diabetes, and left foot surgical repair. -Family hx:Mother: -CVAFather: -CVAMaternal Grandmother: -unknownMate rnal Grandfather: -unknownPate rnal Grandmother: -unknownPate rnal Grandfather: -unknownBrot her and sister passed of CVASister passed from cancer -Tobacco/Drug/Alcoho l Use:Patient denies history of tobacco or drug use.Patient reports history of alcohol use from age 10 to year 1996. Chicken pox: Denies history of chicken pox. 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 01/17/2025 17:08:53
--- OUTSIDE RECORDS SUMMARY | 2025-03-20 14:32 | XMS_ITS | Continuity of Care Document ---
Author Organization [facility] Address [address] [place] [address] Phone Care Team Providers Care Instructor Dramatic Arts Name Role Phone Murali Motley MD Unavailable Unavailable Allergies, Adverse Reactions, Alerts Substance Reaction Status Criticality No Known Allergies Active No Inform ation Medications Medication Instructions Dosage Effective Dates (start - stop) Status Comments lisinopril 20 mg tablet - Active metformin 1,000 mg tablet - Active atorvastatin 20 mg tablet - Active glipizide ER 5 mg tablet, extended release 24 hr - Active Tradjenta 5 mg tablet - Active OneTouch Ultra2 kit - Active OneTouch Delica Lancets 30 gauge - Active OneTouch Ultra Test strips - Active nystatin 100,000 unit/gram topical cream - Active FreeStyle Lancets 28 gauge - Active FreeStyle Lite Strips - Active JANUVIA (unknown strength) Not Available [...] Diagnoses Date Provider Providers Copied on Encounter [facility] Mtime [facility], [id number], [place], [place], [address], [place] tel:[phone] SEC [place] ANGELIQUE Professional diabetic eye exam (chief complaint) Glaucomatous cupping of optic disc of both eyesType 2 diabetes mellitus without complicationsC halazion left lower eyelidAge-rela shelly nuclear cataract, right eyeAge-related nuclear cataract, left eye Tolu Carrion. [address] [facility] [place], [address], [place]. tel:[phone] Referring Provider: Murali Schroeder [address] [place] [place], [address] . tel:[phone] [facility] Mtime [facility], [address], [place], [place], [address], tel:[phone] SEC [place] ANGELIQUE Professional No Information Tolu Carrion. [address] [facility] [place], [address], [place]. tel:[phone] [facility], [address], [place], [place], [address], [place] tel:[phone] SEC [place]unny MERINO Professional ILL-DEFINED EYE DIS NECDiabetes Mellitus Type 2, UncomplicatedC UPPING OF OPTIC DISC Oct-2 8-201 3 Wankum Murali. [address], [place], [place], [address], [place]. tel:[phone] Referring Provider: Murali Schroeder, [address], [place], [address] . tel:[phone] [facility], [address], [place], [place], [address], [place] tel:[phone] SEC Bunny MERINO Professional Diabetes Mellitus Type 2, UncomplicatedO PN ANGL W BORDERLN FIND Low Risk Aug-2 2-201 2 Wankum Murali. [address], [place], [place], [address], [place]. tel:[phone] Referring Provider: Muralilaura Schroeder, [address], [place], [address] . tel:[phone] [facility], [address], [place], [place], [address], [place] tel:[phone] SEC Bunny MERINO Professional No Information 1 Wankum Murali. [address], [place], [place], [address], [place]. tel:[phone] Office/outpa tient Visit, Est [facility], [address], [place], [place], [address], [place] tel:[phone] SEC Bunny MERINO Professional No Information 201 0 Wankum Murali. [address], [address] [place], [address], [place]. tel:[phone] Office/outpa tient Visit, [facility], [address], [place], [place], [address], [place] tel:[phone] SEC [place] Professional No Information May- 2-200 9 Tolu Carrion. [address], [address] [place], [address], [place]. tel:[phone] Office/outpa tient Visit, [facility], [address], [place], [place], [address], [place] tel:[phone] SEC [place] Professional No Information 2 2200 9 Tolu Carrion. [address], [address] [place], [address], [place]. tel:[phone] Office/outpa tient Visit, [facility], [address], [place], [place], [address], [place] tel:[phone] SEC [place] Professional No Information Sep-2 5200 9 Tolu Carrion. [address] [place], [address], [place]. tel:[phone] [facility], [address], [place], [place], [address], [place] tel:[phone] SEC [place] Professional No Information Aug-0 6-200 9 Tolu Carrion. [address], [address] [place], [address], [place]. tel:[phone] Referring Provider: Murali Schroeder, [address] [place], [address] . tel:[phone] Office/outpa tient Visit, [facility], [address] [place] [address] [address], [place], [place], [address], tel:[phone] SEC Bunny MERINO Professional No Information 2 7200 8 Tolu Carrion. [address] [facility], [facility] [place], [address], . tel:[phone] Office/outpa tient Visit, [facility], [address] [place] [address] [address], [place], [place], [address], tel:[phone] SEC Bunny MERINO Professional No Information Oct-0 3-200 7 Tolu Carrion. [address] [facility], [facility] [place], [address], . tel:[phone] Referring Provider: Murali Schroeder, [address] [place], [address] . tel:[phone] Office/outpa tient Visit, [facility], [address] [place] [address] [address], [place], [place], [address], tel:[phone] SEC Bunny MERINO Professional No Information 2 0200 7 Tolu Carrion. [address] [facility] [place], [address], . tel:[phone] Family History Family Member Type Diagnosis Age At Onset Close relative Problem (finding) Diabetes mellitus Problem (finding) Payers Payer name Insurance type Covered democrat ID Authoraliaa hirampatricio(s) Medicaid [facility] [id number] Social History Type Description Quantity Date Captured [...] cupping of optic disc of both eyes Follow up - 2 months for early am IOP check, 24-2 visual llanos and OCT ON Impression/Plan - Di scussed diagnosis in detail [...] OCT ON or sooner with any problems. - 1yr Related to Diabe norma Mellitus Type 2, Uncomplicated no food general manager - Educational materials provided to patient.letter to Related to Diabetes Mellitus Type 2, Uncomplicated - yrly Related to CUPPI NG OF OPTIC DISC cupping but nl iop and nc Relate d to CUPPING OF OPTIC DISC Glaucoma Suspect, OU - large CDR normal IOP - established, stable - vision not affected - will continue to monitor - Discussed dx with pt. Stable at this time. No treatment. Will monitor. Related to Glaucoma Suspect - 1 year complete Related to Josie moser Type II Diabetes Type II, No FOOD SAFETY DIRECTOR - Discussed dx with pt. No FOOD SAFETY DIRECTOR seen. Letter sent to Dr. Davis. Related [...]
[2025-03-20 14:59] LABS: EDCOVIDSCREEN Negative (Negative); EDINFLUASCREEN Negative (Negative); EDINFLUBSCREEN Negative (Negative)
== END 2025-03-20 15:18 | disposition short-term general hospital (02) ==
PROVIDERS: Emergency Provider Nurse Practitioner Family
DX: R11.10 Vomiting, unspecified (principal); E11.65 Type 2 diabetes mellitus with hyperglycemia; Z20.822 Contact with and (suspected) exposure to COVID-19; Z79.4 Long term (current) use of insulin; I10 Essential (primary) hypertension; K21.9 Gastro-esophageal reflux disease without esophagitis; I25.2 Old myocardial infarction
CPT/HCPCS: 82948; 87426; 87804; 99212; G0463